=== PATIENT | female | born 1985 | race Caucasian/White ===

== ENCOUNTER 2020-06-14 18:51 | Emergency (ER) | payer MEDICAID, SELFPAY ==
[2020-06-14 19:01] VITALS: BP 125/87; PULSE 89; RESP 18; TEMP 37.1; O2SAT 98; BMI 35.4
--- NOTE | 2020-06-14 19:31 | ED_ITS ---
HPI - Dental/Oral General Chief complaint: Dental/Oral Stated complaint: DENTAL PAIN Source: patient Mode of arrival: ambulatory Limitations: no limitations History of Present Illness HPI Narrative: 34-year-old female presents with dental pain to upper and lower molars on the right side of her mouth. States that the top molar has been broken for about a year and the bottom molar started hurting several days ago. She has been taking Tylenol Motrin with poor effect. She does not have a dentist, states have pain when chewing, but denies fevers, chills, sore throat, chest pain pressure, palpitations, shortness breath, abdominal pain, abdominal distention, dysuria, heat and hematuria. MD Complaint: tooth pain Teeth map: 1. Broken with caries and gingivitis 2. Dental caries with gingivitis Onset (ago): week(s) (1) Duration: constant Severity: moderate Severity scale (1-10): 7 Relieving factors: nothing Exacerbating factors: chewing, cold, heat and drinking fluids Context: history of dental caries and poor dental care Associated symptoms: gum swelling Treatment prior to arrival: oral analgesic Related Data Previous Rx's Medication Instructions Recorded amoxicillin-pot clavulanate 1 tab PO Q12H 10 Days #20 tab 06/14/20 [Augmentin] ibuprofen 600 mg PO Q8H PRN #30 tab 06/14/20 Allergies Allergy/AdvReac Type Severity Reaction Status Date / Time No Known Allergies Allergy Verified 06/14/20 19:01 Review of Systems Review of Systems: Constitutional: No Fever, No Chills ENT/Mouth: No swallowing difficulty, no change in voice, positive dental pain, positive jaw pain, no facial swelling Eyes: No Eye Pain, No Swelling Cardiovascular: No Chest Pain, No SOB Respiratory: No Cough, No Sputum, No Wheezing, No Smoke Exposure, No Dyspnea Gastrointestinal: No Nausea, No Vomiting, No Diarrhea Genitourinary: No Dysuria Musculoskeletal: No Myalgias Skin: No rash Neuro: No Weakness, No Numbness, No Headache Yes all other systems are reviewed and are negative PMFSH Past Medical History Attestation statement: The following information was validated with the patient. Source: old records reviewed Medical History (Updated 06/14/20 @ 20:00 by Kalpana Parmar NP) Anxiety Depression Sleep apnea Vitamin B deficiency Social History Social History Advance Directives: No Advance Directives Information Provided: No Physical Exam Vital Signs: Vital Signs: Last Vital Signs Temp 98.8 F 06/14/20 19:01 Pulse 89 06/14/20 19:01 Resp 18 06/14/20 19:01 BP 125/87 06/14/20 19:01 Pulse Ox 98 06/14/20 19:01 Body Mass Index 35.4 Appearance: Alert. Oriented X3. No acute distress. Afebrile Eyes: Pupils equal, round and reactive to light. ENT: Pharynx normal. Molar 2 broken with visible caries, molar 31 visible caries, gingivitis surrounding both teeth Neck: Normal inspection. Neck supple. No cervical lymphadenopathy CVS: Normal heart rate and rhythm. Pulses normal. Respiratory: No respiratory distress. Breath sounds normal. Abdomen: Soft and nontender. Skin: Skin warm and dry. Normal skin color. Normal skin turgor. Extremities: No lower extremity edema. Neuro: No motor deficit. No sensory deficit. Course Course Course Narrative: 34-year-old female with dental pain. Visible caries and broken tooth noted. Will treat with Augmentin and lidocaine. Patient was advised to use [id number] Orajel or equivalent for topical pain management. Patient appears nontoxic, is able to maintain secretions, swallows without difficulty. She was advised to eat soft foods at mild temperatures. She is given work sheet for dental clinics as she does not have a dental provide r at this time. Patient verbalized understanding of and agrees to plan of care discharge home. MDM - Dental/Oral Differential Diagnosis Differential diagnosis: Likely gingival abscess, dental caries, toothache, dental abscess and fracture of tooth Medical Records Attestation: I reviewed the patient's medical records. Discharge Plan Discharge Clinical Impression: Dental caries, Dental abscess Patient Disposition: Home, Self-Care Instructions: Dental Abscess (ED), Toothache (ED) Additional Instructions: You were evaluated for dental pain. You may consider purchasing Ambesol or Orajel [id number] for topical pain management. Continue to use Tylenol and Motrin as needed for pain every 4-6 hours. We prescribed Augmentin and antibiotic. Please take this for the next 10 days twice a day. You must follow up dentist. Please call the numbers on the dental clinic work sheet to find a provider that will accept you. Thank you for choosing this emergency department for evaluation. Please follow-up with primary care physician as needed. Return to the emergency department for any new, concerning, or worsening symptoms. Prescriptions: New amoxicillin-pot clavulanate [Augmentin] 875-125 mg tablet 1 tab PO Q12H 10 Days Qty: 20 RF: 0 ibuprofen 600 mg tablet 600 mg PO Q8H PRN (Reason: pain) Qty: 30 RF: 0 Interventions: ED Discharge Assessment Last Done: 06/14/20 20:12 Discharge Date/Time: 06/14/20 20:14
[2020-06-14] MEDS: Amoxicillin/Potassium Clav 875 MG TABLET PO (19:50)
== END 2020-06-14 20:14 | disposition home or self-care (01) ==
PROVIDERS: Emergency Provider Emergency Medicine Emergency Medical Services
DX: K02.9 Dental caries, unspecified (principal); K05.319 Chronic periodontitis, localized, unspecified severity; Z79.899 Other long term (current) drug therapy
CPT/HCPCS: 99283; 99284

== ENCOUNTER 2020-07-06 10:23 | Emergency (ER) | payer MEDICAID, SELFPAY ==
--- NOTE | ~2020-07-06 | CT_ITS ---
CT HEAD WITHOUT CONTRAST CLINICAL INFORMATION: Migraine headache worse than prior. COMPARISON: None available. TECHNIQUE: Contiguous axial imaging was performed from the skull base to vertex without intravenous administration of contrast. This CT examination was performed using dose optimization techniques as appropriate, variously including the following: *Automated exposure control *Adjustment of mA and/or kV according to patient size (this includes techniques or standardized protocols for targeted exams where dose is matched to indication/reason for exam; i.e. extremities or head) *Use of iterative reconstruction technique FINDINGS: There is no intracranial hemorrhage, hydrocephalus, extra-axial surface collection, midline shift, or other herniation pattern. Foley to white matter differentiation is diffusely maintained without evidence of an evolved acute territorial infarct. The basilar cisterns are preserved. No significant soft tissue abnormality. No acute osseous abnormality. The paranasal sinuses and the mastoid air cells are well aerated. CT/CT head/brain wo con IMPRESSION: No acute intracranial abnormality.
[2020-07-06 11:13] VITALS: BP 144/78; PULSE 90; RESP 16; TEMP 37.1; O2SAT 98; BMI 55.4
--- NOTE | 2020-07-06 11:23 | ECG_ITS ---
Test Reason : HEADACHE Blood Pressure : / mmHG Vent. Rate : 082 BPM Atrial Rate : 082 BPM P-R Int : 178 ms QRS Dur : 084 ms QT Int : 366 ms P-R-T Axes : 053 053 031 degrees QTc Int : 427 ms Normal sinus rhythm Normal ECG No previous ECGs available Referred By: Lizbeth Barfield Electronically Signed By:Wilfredo Wild
[2020-07-06] MEDS: 0.9 % Sodium Chloride 1,000 ML 999 ML IVCONT (11:59)
[2020-07-06 12:10] LABS: Basophils Absolute Auto 0.1 X10*3/uL (0.0-0.2); Eosinophils Absolute Auto 0.5 X10*3/uL (0.0-0.4); Eosinophils Percent Auto 5.4 % (0-4); Hematocrit 39.1 % (37-47); Hemoglobin 12.5 g/dl (12.0-16.0); Imm Gran Abs Auto 0.04 X10*3/uL (0.00-0.03); Imm Gran Pct Auto 0.4 % (0.0-0.4); Lymphocytes Absolute Auto 2.8 X10*3/uL (1.2-4.9); Lymphocytes Percent Auto 28.4 % (20-40); MANUAL DIFF FLAG NO; Mean Corpuscular Hemoglobin 27.4 pg (27.0-33.0); Mean Corpuscular Volume 85.7 fL (80-98); Monocytes Absolute Auto 0.7 X10*3/uL (0.1-1.2); Monocytes Percent Auto 6.5 % (2-11); Neutrophils Absolute Auto 5.8 X10*3/uL (2.0-8.3); Neutrophils Percent Auto 58.3 % (45-73); Platelet Count 340 X10*3/uL (160-400); Red Blood Count 4.56 X10*6/uL (4.20-5.50); Red Cell Distribution Width 16.5 % (11.0-16.0)
[2020-07-06 12:44] LABS: HCG Quantitative < 2 mIU/mL
[2020-07-06 12:45] LABS: Anion Gap 14 (12-20); Blood Urea Nitrogen 13 mg/dL (9-16); Carbon Dioxide 22 mmol/L (22-29); Chloride 106 mmol/L (96-108); Creatinine Clr Calc Pharmacy 150.3; Estimated Glomerular Filt Rate > 60; Glucose Random 95 mg/dL (60-115); Potassium 4.4 mmol/L (3.3-5.1); Sodium 138 mmol/L (135-145)
[2020-07-06 12:48] LABS: Troponin-I High Sensitivity < 3.5 ng/L (<3.5-17.0)
--- NOTE | 2020-07-06 13:07 | ED.HA ---
HPI - Headache General Chief Complaint: Headache Stated Complaint: MIGRAINE Time Seen by Provider: 07/06/20 11:23 Source: patient Mode of arrival: ambulatory Limitations: no limitations History of Present Illness HPI Narrative: 34-year-old female with a past medical history of hemiplegic migraine headaches, anxiety, depression, sleep apnea and vitamin-B deficiency who recently moved from [place] here who has had MRIs in the past of her brain in [place] and they explained to her that the MRIs were normal and these were hemiplegic migraine headaches presenting for a migraine headache at the frontal aspect of her head with associated left arm numbness and as patient reports weakness. Reports that this started when she was playing a video gain and she had visual disturbance. Which is similar when compared to her prior migraine hemiplegic headaches. Reports she took an Excedrin and this improved her headache and it is completely resolved at this time. Although reports that she has followed up with her primary care provider and they explained to her that they cannot give her any medications or do any MRIs without any other paper trails of her having recent headaches therefore that is why she came to the emergency department today to have an MRI and blood work just to prove that she does get migraine headaches with hemiplegia. I explained to the patient that we will not be obtaining a MRI unless we think this is a stroke emergently although I can do a CT scan of her brain. Patient denies any other symptoms complaints or concerns at this time. MD elicited complaint: headache and migraine Onset (ago): hour(s) (Few hours prior to arrival) Onset description: gradually Location: frontal Severity: similar to previous episodes Quality & Timing: aching Exacerbating factors: none Relieving factors: other (Excedrin) Context: other (While playing video game) Associated symptoms: tingling (To left arm) and numbness (To left arm) Treatments prior to arrival: other (Excedrin which completely resolved her headache) Related Data Previous Rx's Medication Instructions Recorded amoxicillin-pot clavulanate 1 tab PO Q12H 10 Days #20 tab 06/14/20 [Augmentin] ibuprofen 600 mg PO Q8H PRN #30 tab 06/14/20 lfcpvyobyj-yomkmwyolmcvp-qmgk 1 cap PO Q8H PRN #10 cap 07/06/20 [Fioricet] Allergies Allergy/AdvReac Type Severity Reaction Status Date / Time No Known Allergies Allergy Verified 06/14/20 19:01 Review of Systems Review of Systems: Constitutional : No changes in activity, No lethargy, No recent prior head injury, No agitation, No increased fussiness ENT/Mouth : No Ear Pain, No Nasal discharge/drainage Eyes: No Eye Pain, No Swelling, No Redness, No Foreign Body, No Vision Changes Cardiovascular : No Chest Pain, No SOB Respiratory : No Cough Gastrointestinal : No Nausea, No Vomiting, No abdominal Pain Genitourinary : No Dysuria, No Urinary Frequency, No Urinary Incontinence, No Urgency, No Flank Pain Musculoskeletal : No joint pain, No neck stiffness, No back pain/injury Skin : No lacerations Neuro : + Weakness, + Headache, + paresthesias to left arm, No unsteady gait, No Loss of Consciousness, No altered mental status, No dizziness Denies past medical history of HIV, recent trauma, coagulopathy, recent spinal/ epidural procedure, new medication, URI symptoms, close contacts with similar symptoms, tick bite, or known CO2 exposure. Yes all other systems are reviewed and are negative PMFSH Past Medical History Attestation statement: The following information was validated with the patient. Medical History Anxiety Depression Sleep apnea Vitamin B deficiency Social History Social History Alcohol intake: never Smoking Status: Current every day smoker Use of substances other than those prescribed or required for medical reasons: Yes Substance Use Type: Marijuana Advance Directives: No Advance Directives Information Provided: No Physical Exam Vital Signs: Vital Signs: Last Vital Signs Temp 98.7 F 07/06/20 11:13 Pulse 90 07/06/20 11:13 Resp 16 07/06/20 11:13 BP 144/78 H 07/06/20 11:13 Pulse Ox 98 07/06/20 11:13 Body Mass Index 55.4 Vital signs have been reviewed as normal and appeared to be correct. Blood pressure normal. Heart rate normal. Respiration rate normal. Temperature normal. Oxygen saturation normal. Appearance: Alert. Oriented X3. No acute distress. Head: Normal external exam. Normocephalic. Atraumatic. Able to rotate head bilaterally. Eyes: PERRLA. EOMI. No nystagmus noted. Conjunctiva and sclera normal. Eyelids normal. Corneal reflex normal. ENT: EAC normal. TM's Normal. Hearing normal. Pharynx normal. Uvula midline. tongue midline. Moist mucous membranes. No trismus noted. No drooling noted. No muffled voice noted. Neck: Normal inspection. Neck supple. FROM. No adenopathy. Thyroid Normal. No meningeal signs. No neck mass noted. CVS: Normal heart rate and rhythm. Heart sound normal. No murmurs noted. Pulses normal throughout. Respiratory: No respiratory distress. Painless inspiration. Breath sounds normal. No wheezes/rales/rhonchi noted. Chest nontender. No accessory muscle usage noted or decreased air movement noted. Back: Full range of motion noted. Skin: Skin warm and dry. Normal skin color. Normal skin turgor. No rashes/lesions/lacerations noted. Extremities: Extremities exhibit normal range of motion. Extremities nontender. Able to shrug shoulders bilaterally and keep up against resistance. Neuro: Oriented X 3. No motor deficit. No sensory deficit. Reflexes normal. Moving all extremities. No focal motor deficits. Cranial nerves II-XI intact bilaterally. Facial strength normal. Normal cognition. Speech normal. Gait normal. Strength 5/5 throughout. No pronator drift. No tremor noted. No fasciculations noted. Muscle tone normal throughout. No asterixis noted. Zszdzf-om-tbqd test normal. Heel to rivera test normal. Tandem gait normal. Does not sway with eyes open. Romberg test negative. Rapid alternating movement upper extremity normal. Rapid alternating movement lower extremity normal. Hand drop from overhead-Mrs. face. No rigidity noted. NIHSS score 0. Course Course Course Narrative: - Patient afebrile, resting comfortably in no distress. Non-toxic appearing. Patient denies any recent trauma/injury to head. Neurological exam shows no deficits. BP WNL. Denies any changes in vision. Patient ambulates without difficulty. Given the history, and physical - most likely diagnosis: Hemiplegic Migraine FONSECA. Although due to patient reporting that she wants an MRI for a papaer trail will obtain CT scan of brain to evaluate for any acute processes. Patient reports her headache is gone at this time due to the Excedrin she took and is refusing any medications at this time. Will d/c with migraine medicaiton and advised to follow - up with PCP. Patient demonstrated good understanding of signs and symptoms to return to ED for further testing should sx worsen. gradual onset FONSECA. Pt states classic of previous migraine hemiplegic HAs. SAH: unlikely given gradual onset and similar to previous episodes Intracranial bleed: unlikely given neg trauma, neg anticoagulation Meningitis: unlikely given pt afebrile, neg stiff neck, no immune compromise. Exam without signs of meningismus Temporal arteritis: Unlikely given Neg jaw claudication, no temporal tenderness or nodularity on exam. Cerebral venous thrombosis: unlikely given no h/o hypercoaguable state, no chronic head/neck infection. Reevaluation(s) Reevaluation #1: - labs obtained and all within normal limits. CT scan of brain within normal limits no acute processes noted. Will DC home with symptomatic treatment along with instructions to return if any new or worsening symptoms to follow up with primary care provider. Patient understands agrees the plan. Time: 13:48 [facility] - Headache Medical Records Attestation: I reviewed the patient's medical records. Lab Data Attestation: I reviewed the patient's lab results. Result diagrams: 07/06/20 11:56 07/06/20 11:56 Labs: Lab Results 07/06/20 07/06/20 07/06/20 Range/Units 11:56 11:56 11:56 WBC 10.0 (4.8-10.8) X10*3/uL RBC 4.56 (4.20-5.50) X10*6/uL Hgb 12.5 (12.0-16.0) g/dl Hct 39.1 (37-47) % MCV 85.7 (80-98) fL MCH 27.4 (27.0-33.0) pg MCHC 32.0 (31.0-35.0) g/dl RDW 16.5 H (11.0-16.0) % Plt Count 340 (160-400) X10*3/uL MPV 10.0 (9.4-12.3) fL Immature Gran % (Auto) 0.4 (0.0-0.4) % Neut % (Auto) 58.3 (45-73) % Lymph % (Auto) 28.4 (20-40) % Glasscock % (Auto) 6.5 (2-11) % Eos % (Auto) 5.4 H (0-4) % Baso % (Auto) 1.0 (0-2) % Lymph # (Auto) 2.8 (1.2-4.9) X10*3/uL Glasscock # (Auto) 0.7 (0.1-1.2) X10*3/uL Eos # (Auto) 0.5 H (0.0-0.4) X10*3/uL Baso # (Auto) 0.1 (0.0-0.2) X10*3/uL Abs Immat Gran (auto) 0.04 H (0.00-0.03) X10*3/uL Absolute Neuts (auto) 5.8 (2.0-8.3) X10*3/uL Absolute Nucleated RBC 0.000 (0.0-0.012) X10*3/uL Nucleated RBC % (auto) 0.0 (0.0-0.2) /100WBC Sodium 138 (135-145) mmol/L Potassium 4.4 (3.3-5.1) mmol/L Chloride 106 (96-108) mmol/L Carbon Dioxide 22 (22-29) mmol/L Anion Gap 14 (12-20) BUN 13 (9-16) mg/dL Creatinine 0.83 (0.5-1.4) mg/dL Estim Creat Clear Calc 150.3 Estimated GFR > 60 Random Glucose 95 (60-115) mg/dL Calcium 9.0 (8.4-10.2) mg/dL Magnesium 2.0 (1.6-2.6) mg/dL Troponin I High Sens < 3.5 (<3.5-17.0) ng/L C-Reactive Protein 0.30 (< or = 0.50) mg/dL Beta HCG, Quant < 2 mIU/mL Imaging Data CT scan of brain without contrast: Attestation: I personally reviewed and interpreted this imaging study as follows: Radiologist's impression: FINDINGS: There is no intracranial hemorrhage, hydrocephalus, extra-axial surface collection, midline shift, or other herniation pattern. Foley to white matter differentiation is diffusely maintained without evidence of an evolved acute territorial infarct. The basilar cisterns are preserved. No significant soft tissue abnormality. No acute osseous abnormality. The paranasal sinuses and the mastoid air cells are well aerated. CT/CT head/brain wo con IMPRESSION: No acute intracranial abnormality. ECG Data Attestation: I personally reviewed and interpreted this ECG as follows: ECG interpretation date: 07/06/20 ECG interpretation time: 11:15 Interpretation: Normal sinus rhythm with ventricular rate of 82 with normal MI interval normal QRS duration normal QT/QTC interval. No acute ischemic changes noted. Discharge Plan Discharge Clinical Impression: Headache, migraine Patient Disposition: Home, Self-Care Instructions: Migraine Headache (ED) Prescriptions: New aucwvwytuv-gtdqxpuapktxt-bxti [Fioricet] 50-300-40 mg capsule 1 cap PO Q8H PRN (Reason: pain) Qty: 10 RF: 0 No Action amoxicillin-pot clavulanate [Augmentin] 875-125 mg tablet 1 tab PO Q12H 10 Days Qty: 20 RF: 0 ibuprofen 600 mg tablet 600 mg PO Q8H PRN (Reason: pain) Qty: 30 RF: 0 Referrals: Navarro Dumont MD [Primary Care Provider] - 2 days Osvaldo Segura MD [Physician] - 2 weeks (Call to make a follow-up appointment for your migraine hemiplegic headaches) Stand Alone Forms: Work/School Release Print Language: Botswanan
[2020-07-06] MEDS: Butalb/Acetamin/Caff 50/325/40 TABLET 2 TAB PO (14:26)
== END 2020-07-06 14:53 | disposition home or self-care (01) ==
PROVIDERS: Physician Assistant Medical; Emergency Provider Emergency Medicine Emergency Medical Services; PCP Internal Medicine
DX: G43.909 Migraine, unspecified, not intractable, without status migrainosus (principal); F17.200 Nicotine dependence, unspecified, uncomplicated; Z71.6 Tobacco abuse counseling; Z79.899 Other long term (current) drug therapy
CPT/HCPCS: 36415; 70450; 80048; 83735; 84484; 84702; 85025; 86140; 93005; 96360; 99283; 99284

== ENCOUNTER 2020-08-18 14:55 | Outpatient (REF) | payer MEDICAID, SELFPAY ==
--- NOTE | ~2020-08-18 | US_ITS ---
EXAMINATION: US PELVIS COMPLETE CLINICAL INFORMATION: Leiomyoma. COMPARISON: None TECHNIQUE: Transabdominal and transvaginal imaging of pelvis is performed. FINDINGS: The uterus is anteverted measuring 12.9 cm in length, 8.1 cm in AP or 7.3 cm in transverse dimension. There is a large hypoechoic lesion in the right body of uterus measuring 7.0 x 6.9 x 6.5 cm consistent with fibroid. No additional lesions seen. The endometrial canal is distorted by the large fibroid. It measures 0.8 cm. The right ovary measures 3.4 x 2.5 x 3.2 cm and volume 16.0 mL. It appears unremarkable. The left ovary measures 2.8 x 3.9 x 3.2 cm and volume 18.7 mL. There is an anechoic cyst measuring 2.2 x 2.3 x 2.2 cm. There is no free fluid seen. US/US pelvic complete IMPRESSION: Large uterine fibroid. Distorted endometrial lining with endometrial thickness measuring 0.8 cm. Anechoic cyst left ovary.
--- NOTE | ~2020-08-18 | US_ITS ---
EXAMINATION: US PELVIS COMPLETE CLINICAL INFORMATION: Leiomyoma. COMPARISON: None TECHNIQUE: Transabdominal and transvaginal imaging of pelvis is performed. FINDINGS: The uterus is anteverted measuring 12.9 cm in length, 8.1 cm in AP or 7.3 cm in transverse dimension. There is a large hypoechoic lesion in the right body of uterus measuring 7.0 x 6.9 x 6.5 cm consistent with fibroid. No additional lesions seen. The endometrial canal is distorted by the large fibroid. It measures 0.8 cm. The right ovary measures 3.4 x 2.5 x 3.2 cm and volume 16.0 mL. It appears unremarkable. The left ovary measures 2.8 x 3.9 x 3.2 cm and volume 18.7 mL. There is an anechoic cyst measuring 2.2 x 2.3 x 2.2 cm. There is no free fluid seen. US/US transvaginal IMPRESSION: Large uterine fibroid. Distorted endometrial lining with endometrial thickness measuring 0.8 cm. Anechoic cyst left ovary.
== END 2020-08-18 14:56 | disposition home or self-care (01) ==
LOC: HO.US 14:55
PROVIDERS: Visit Provider Advanced Practice Midwife
DX: D25.9 Leiomyoma of uterus, unspecified (principal)
CPT/HCPCS: 76830; 76856

== ENCOUNTER → 2020-09-22 08:11 | Outpatient (BNVA) | payer MEDICAID, SELFPAY | PROVIDERS: PCP Internal Medicine; Visit Provider Obstetrics & Gynecology | DX: D21.9 Benign neoplasm of connective and other soft tissue, unspecified (principal) | CPT/HCPCS: 99202 ==

== ENCOUNTER 2021-03-23 11:05 | Outpatient (REF) | payer MEDICAID, SELFPAY ==
--- NOTE | ~2021-03-23 | US_ITS ---
EXAMINATION: ULTRASOUND OF THE PELVIS CLINICAL INFORMATION: Benign neoplasm of connective tissue.. COMPARISON: 08/18/2020. TECHNIQUE: Transabdominal and transvaginal pelvic ultrasound. A transvaginal study was performed in addition to the transabdominal study which did not yield an adequate examination of the uterus and ovaries due to superimposed distended gas-filled loops of bowel. FINDINGS: The uterus is normal in size and appearance, measuring 11.7 x 7.9 x 7.3 cm longitudinally, anteroposteriorly and transversely. The endometrial stripe thickness is normal, measuring 0.8 cm in thickness. Redemonstration of a prominent uterine fibroid extending off of the anterior right uterine body. This measures 7.3 x 6.4 x 6.7 cm. This is similar to prior. Nabothian cysts are noted at the cervix. The ovaries bilaterally are visualized and appear normal, with the right ovary measuring 3.3 x 2.3 x 3.5 cm and the left ovary measuring 5.1 x 3.6 x 3.3 cm. Dominant left ovarian follicle measures 2.9 cm. No follow-up imaging recommended. No pelvic free fluid. US/US pelvic complete IMPRESSION: Dominant uterine fibroid without significant change from prior..
--- NOTE | ~2021-03-23 | US_ITS ---
EXAMINATION: ULTRASOUND OF THE PELVIS CLINICAL INFORMATION: Benign neoplasm of connective tissue.. COMPARISON: 08/18/2020. TECHNIQUE: Transabdominal and transvaginal pelvic ultrasound. A transvaginal study was performed in addition to the transabdominal study which did not yield an adequate examination of the uterus and ovaries due to superimposed distended gas-filled loops of bowel. FINDINGS: The uterus is normal in size and appearance, measuring 11.7 x 7.9 x 7.3 cm longitudinally, anteroposteriorly and transversely. The endometrial stripe thickness is normal, measuring 0.8 cm in thickness. Redemonstration of a prominent uterine fibroid extending off of the anterior right uterine body. This measures 7.3 x 6.4 x 6.7 cm. This is similar to prior. Nabothian cysts are noted at the cervix. The ovaries bilaterally are visualized and appear normal, with the right ovary measuring 3.3 x 2.3 x 3.5 cm and the left ovary measuring 5.1 x 3.6 x 3.3 cm. Dominant left ovarian follicle measures 2.9 cm. No follow-up imaging recommended. No pelvic free fluid. US/US transvaginal IMPRESSION: Dominant uterine fibroid without significant change from prior..
== END 2021-03-23 11:06 | disposition home or self-care (01) ==
LOC: HO.US 11:05
PROVIDERS: PCP Internal Medicine; Visit Provider Obstetrics & Gynecology
DX: D21.9 Benign neoplasm of connective and other soft tissue, unspecified (principal)
CPT/HCPCS: 76830; 76856

== ENCOUNTER → 2021-03-30 11:10 | Outpatient (BNVA) | payer MEDICAID, SELFPAY | PROVIDERS: Visit Provider Obstetrics & Gynecology ==

== ENCOUNTER 2021-10-13 07:46 | Emergency (ER) | payer MEDICAID, SELFPAY ==
[2021-10-13 08:02] VITALS: BP 142/70; PULSE 82; RESP 18; TEMP 36.6; O2SAT 99; BMI 42.3
[2021-10-13 09:22] LABS: UPreg QC Valid YES; Urine Pregnancy NEGATIVE (NEGATIVE)
--- NOTE | 2021-10-13 09:25 | ED_ITS ---
HPI - Nausea/Vomiting/Diarrhea General Chief complaint: Nausea/Vomiting/Diarrhea Stated complaint: Vomiting x3 days Time Seen by Provider: 10/13/21 09:01 Source: patient Mode of arrival: ambulatory Limitations: no limitations History of Present Illness HPI Narrative: 35-year-old female who presents emergency department for evaluation of nausea and vomiting. She states that she has had persistent nausea over the past 3 days. She states she has been vomiting once a day. She vomited this morning she states that he can take the food that she ate last night. She states she occasionally gets heartburn like symptoms. Her last menstrual period was last month and she believes that it was a normal menstrual period for her. She denied fever, chills, rhinorrhea but she states she does have nasal congestion and she feels like she has a cold. She states that she has a cough which is productive yellow to greenish sputum and occasional she states that she has noticed blood streaks in the sputum. She denied chest pain shortness of breath or dyspnea on exertion. She had 1 episode of diarrhea this morning. She denied abdominal pain, frequency, urgency or dysuria. She has not noticed any bloody or dark stools. The patient states that she had to be sent home from work yesterday secondary to her vomiting and she was unable to work today. Related Data Home Medications Medication Instructions Recorded Confirmed amitriptyline 25 mg tablet 25 mg PO DAILY 09/22/20 cyclobenzaprine 10 mg tablet 10 mg PO TID 09/22/20 propranolol 20 mg tablet 10 mg PO BID 09/22/20 sumatriptan succinate 100 mg tablet 100 mg PO Q2-4H PRN 09/22/20 Previous Rx's Medication Instructions Recorded amoxicillin 875 mg-potassium 1 tab PO Q12H 10 Days #20 tab 06/14/20 clavulanate 125 mg tablet (Augmentin) ibuprofen 600 mg tablet 600 mg PO Q8H PRN #30 tab 06/14/20 afnmgsrksm-upckefuzlbtrv-jysgpfki 1 cap PO Q8H PRN #10 cap 07/06/20 50 mg-300 mg-40 mg capsule (Fioricet) omeprazole 20 mg capsule,delayed 20 mg PO DAILY 30 Days #30 cap 10/13/21 release ondansetron 4 mg disintegrating 4 mg PO Q6-8H PRN #14 tab 10/13/21 tablet Allergies Allergy/AdvReac Type Severity Reaction Status Date / Time No Known Allergies Allergy Verified 10/13/21 08:02 Review of Systems Review of Systems: Yes all other systems are reviewed and are negative [facility] Past Medical History [facility] Narrative: Social history: She states she has 2 jobs working in [employer]. She vapes nicotine and she states that she used to vape THC but she has stopped. She rarely drinks alcohol. She denies any other drug use. Medical History Anxiety Carpal tunnel syndrome Depression Hemiplegic migraine Sleep apnea Vitamin B deficiency Surgical History Hx of dilation and curettage Social History Social History Alcohol intake: never Substance Use Type: Marijuana Advance Directives: No Advance Directives Information Provided: No Physical Exam Vital Signs: Vital Signs: Last Vital Signs Temp 97.9 F 10/13/21 08:02 Pulse 82 10/13/21 08:02 Resp 18 10/13/21 08:02 BP 142/70 H 10/13/21 08:02 Pulse Ox 99 10/13/21 08:02 BMI result Body Mass Index 42.3 Const: General: cooperative and no acute distress Orientation/consciousness: oriented to person and oriented to place Limitations: no limitations HEENT: Head: Yes normal to inspection, Yes normocephalic and Yes atraumatic Ears: external ears normal General nose exam: Normal external nose present Face and sinus: Yes normal facial exam Mouth: Normal oral and palatal mucosa present Throat: Yes posterior oropharynx normal Eyes: General: appearance normal, both eyes and all related structures Pupils: Equal, round and reactive pupils present Neck: Neck: Yes normal visual inspection, Yes no lymphadenopathy, Yes trachea midline and Yes supple Chest: Chest palpation & inspection: normal inspection of the chest and normal palpation of entire chest wall Resp: Effort & Inspection: normal respiratory effort and able to speak in complete sentences Auscultation: clear to auscultation bilaterally Cardio: Rate: regular rate Rhythm: regular rhythm Heart sounds: S1 normal heart sound present, S2 normal heart sound present and no murmurs GI: Inspection: Yes normal to inspection Palpation (GI): Soft to palpation, nontender and no guarding Auscultation: normal bowel sounds : General: Yes no CVA tenderness Back/Spine/Pelvis: Back: no CVA tenderness Skin: General skin exam: no rashes or lesions noted Neuro: General: oriented to person and oriented to place Cranial nerves: Yes CN's II-XII intact bilaterally and Yes Equal, round and reactive pupils present Cognition (Neuro): normal cognition Motor exam (neuro): 5/5 motor strength present throughout Extrem: General: Yes normal to inspection Psych: Appearance: grossly normal Speech and movement: Normal speech and movement present Affect: normal affect Attitude: cooperative Thought process: Normal thought process present Thought content: Normal thought content present Course Course Course Narrative: 35-year-old female who presents emergency department for evaluation of rhinorrhea, nasal congestion, cough, vomiting x3 days, 1 episode per day. She also had 1 episode of diarrhea this morning. The patient's vital signs were normal and her examination was unremarkable. Patient's urine test was negative. Patient's symptoms are most likely secondary to a viral syndrome or gastritis. Patient states she does get heartburn like symptoms therefore she will be treated with omeprazole and Zofran ODT. She will also be given a work note. She was given printed and verbal instructions discharged home. MDM - Nausea/Vomiting/Diarrhea Lab Data Labs: Lab Results 10/13/21 Range/Units 09:09 Urine Test NEGATIVE (NEGATIVE) Discharge Plan Discharge Clinical Impression: URI (upper respiratory infection) Qualifiers: URI type: unspecified viral URI Qualified Code(s): J06.9 - Acute upper respiratory infection, unspecified Gastritis Qualifiers: Gastritis type: unspecified gastritis Chronicity: acute Gastritis bleeding: without bleeding Qualified Code(s): K29.00 - Acute gastritis without bleeding Vomiting Qualifiers: Nausea presence: with nausea Patient Disposition: Home, Self-Care Instructions: Gastritis (ED), Upper Respiratory Infection (ED) Additional Instructions: Your urine test was negative. If you do not have a normal or if you are 2-3 weeks late and then you should repeat a test, home test are very sensitive if your several weeks late. Take Zofran ODT 4 mg pills, 1 pill dissolved in your mouth every 8 hours as needed for nausea and vomiting. Take omeprazole 20 mg pills, 1 pill once a day, this is a medication that will shut off your acid production and help her stomach heal. Follow-up with your doctor in 2 days. Please return to the emergency department if your symptoms get worse or if you develop any symptoms that are concerning to you. Prescriptions: New omeprazole 20 mg capsule,delayed release(DR/EC) 20 mg PO DAILY 30 Days Qty: 30 0RF ondansetron 4 mg tablet,disintegrating 4 mg PO Q6-8H PRN (Reason: nausea and vomiting) Qty: 14 0RF No Action amoxicillin-pot clavulanate [Augmentin] 875-125 mg tablet 1 tab PO Q12H 10 Days Qty: 20 0RF ibuprofen 600 mg tablet 600 mg PO Q8H PRN (Reason: pain) Qty: 30 0RF cjkilfclwr-rlowmfixsodku-cotb [Fioricet] 50-300-40 mg capsule 1 cap PO Q8H PRN (Reason: pain) Qty: 10 0RF sumatriptan succinate 100 mg tablet 100 mg PO Q2-4H PRN0RF Rx Instructions: do not exceed 2 doses per 24 hrs propranolol 20 mg tablet 10 mg PO BID 0RF amitriptyline 25 mg tablet 25 mg PO DAILY 0RF cyclobenzaprine 10 mg tablet 10 mg PO TID 0RF
[2021-10-13 09:27] LABS: Appearance Urine CLOUDY; Color Urine YELLOW; Glucose Urine UA NEG (NEG); Leukocyte Esterase Urine NEG (NEG); Nitrite Urine NEG (NEG); PH 5.5 (5.0-8.0); Specific Gravity - Urine >= 1.030 (1.005-1.025); UACC Culture Trigger NO; Urine Blood NEG (NEG); Urine Ketones NEG (NEG); Urine Protein 1+ MG/DL (NEG-TRACE)
[2021-10-13 09:37] LABS: Bacteria Urine TRACE /LPF; Calcium Oxalate Crystals Urine 4+ /LPF; RBC Urine 0 /HPF (0); Squamous Epithelial Cell Urine 4+ /LPF; WBC Urine 0-2 /HPF (0-4)
== END 2021-10-13 09:47 | disposition home or self-care (01) ==
PROVIDERS: Emergency Provider Emergency Medicine Emergency Medical Services; PCP Internal Medicine
DX: J06.9 Acute upper respiratory infection, unspecified (principal); K29.00 Acute gastritis without bleeding; Z79.899 Other long term (current) drug therapy
CPT/HCPCS: 81001; 81025; 99283

== ENCOUNTER 2024-05-17 17:51 | Emergency (ER) | payer MEDICAID, SELFPAY ==
[2024-05-17 18:16] VITALS: BP 137/80; PULSE 91; RESP 18; TEMP 36.3; O2SAT 100; BMI 44.0
--- NOTE | 2024-05-17 18:24 | ED_ITS ---
HPI - General Adult General Chief complaint: Wound/Laceration Stated complaint: Rt Thumb Laceration Time Seen by Provider: 05/18/24 00:52 Source: patient Limitations: no limitations History of Present Illness ED Provider: Vanessa Lai PA-C HPI narrative: 38-year-old female presents with right thumb laceration. Patient works in a kitchen, she was slicing an onion, she sliced the tip of the thumb. It is not b leeding. She is does not know if her tetanus is up-to-date. Related Data Home Medications ?Medication ?Instructions ?Recorded ?Confirmed amitriptyline 25 mg tablet 25 mg PO DAILY 09/22/20 cyclobenzaprine 10 mg tablet 10 mg PO TID 09/22/20 propranolol 20 mg tablet 10 mg PO BID 09/22/20 sumatriptan succinate 100 mg tablet 100 mg PO Q2-4H PRN 09/22/20 Previous Rx's ?Medication ?Instructions ?Recorded amoxicillin 875 mg-potassium 1 tab PO Q12H 10 days #20 tabs 06/14/20 clavulanate 125 mg tablet (Augmentin) ibuprofen 600 mg tablet 600 mg PO Q8H PRN pain #30 tabs 06/14/20 nlclkhdscg-khwpwpcnmeskp-fyyagjew 1 cap PO Q8H PRN pain #10 caps 07/06/20 50 mg-300 mg-40 mg capsule (Fioricet) omeprazole 20 mg capsule,delayed 20 mg PO DAILY 30 days #30 caps 10/13/21 release ondansetron 4 mg disintegrating 4 mg PO Q6-8H PRN nausea and 10/13/21 tablet vomiting #14 tabs Allergies Allergy/AdvReac Type Severity Reaction Status Date / Time No Known Allergies Allergy Verified 05/17/24 18:19 Review of Systems Review of Systems: Yes all other systems are reviewed and are negative Constitutional: Constitutional: Denies fatigue and Denies fever(s) Musculoskeletal: Musculoskeletal: Denies arthralgias, Denies joint swelling, Denies numbness and Denies tingling Neurologic: Denies numbness and Denies tingling Endocrine: Endocrine: Denies fatigue PMF Past Medical History Attestation statement: The following information was validated with the patient. Medical History Anxiety Carpal tunnel syndrome Depression Hemiplegic migraine Sleep apnea Vitamin B deficiency Surgical History Hx of dilation and curettage Social History Social History Alcohol intake: never Smoked in Last 30 Days: Yes Use of substances other than those prescribed or required for medical reasons: Yes Substance Use Type: Marijuana Advance Directives: No Patient : No Physical Exam ED Vital Signs: Vital Signs - 24 hr 05/17/24 18:16 05/18/24 00:01 Temperature 97.3 F 98.2 F Pulse Rate 91 90 Respiratory Rate 18 20 Blood Pressure 137/80 125/63 Pulse Oximetry 100 100 Oxygen Delivery Method Room Air Room Air BMI result Body Mass Index 44.0 Const Other: Alert Orientation/consciousness: patient oriented x3 Resp Effort & Inspection: normal respiratory effort Cardio Other: Normal peripheral perfusion Skin Other: Warm dry no rash, avulsion noted at the tip of the right thumb, it is discolored, still intact and not bleeding Neuro General: patient oriented x3, no focal motor deficits and CN's II-XI intact bilaterally Psych Other: Calm cooperative Course Course Course Narrative: RME, this is a rapid medical exam performed by Naseem Hinkle please refer to primary provider for complete H&P- 38-year-old female presents for evaluation of right thumb laceration. She accidentally cut her thumb with a knife while cutting onions. Appears to be an avulsion injury Medications Administered Discontinued Medications Generic Name Dose Route Start Last Admin Trade Name Freq PRN Reason Stop Dose Admin Diphtheria/Tetanus/Acell Pertussis 0.5 ml 05/18/24 01:34 05/18/24 01:42 Diphth,Pertus(Acell),Tet Adult 0.5 Ml Syringe IM 05/18/24 01:35 0.5 ml .ONCE ONE Administration Medical Decision Making Medical Decision Making MDM Narrative: 38-year-old female presents with right thumb laceration. Patient works in a kitchen, she was slicing an onion, she sliced the tip of the thumb. It is not bleeding. She is does not know if her tetanus is up-to-date. No relevant chronic issues History: Per patient I have considered the following differential diagnoses: Laceration, avulsion, excoriation, abrasion Plan: The patient has an avulsion the flap is still intact, I suspect the tissue we will slough and off given the discoloration. The area is callused as well. I cleaned the site well and covered it with surgical glue, we will up date her tetanus vaccine. Discharge Plan Discharge Clinical Impression: Avulsion of skin of right thumb Patient Disposition: Home, Self-Care Instructions: Acute Wounds (ED) Additional Instructions: You have what is called an avulsion, the flap that is still adhered to the thumb may slough and fall off. Keep the wound clean and dry, it was covered with surgical glue. The glue will gradually wear away. Watch for signs of infection which would include redness, swelling or pus draining from the site. Your tetanus vaccine was updated today it is valid for 10 years. Follow up with your primary care provider as needed. Prescriptions: No Action amoxicillin-pot clavulanate [Augmentin] 875-125 mg tablet 1 tab PO Q12H 10 Days Qty: 20 0RF ibuprofen 600 mg tablet 600 mg PO Q8H PRN (Reason: pain) Qty: 30 0RF epokavtzcg-omruwfgzohozs-bvwl [Fioricet] 50-300-40 mg capsule 1 cap PO Q8H PRN (Reason: pain) Qty: 10 0RF omeprazole 20 mg capsule,delayed release(DR/EC) 20 mg PO DAILY 30 Days Qty: 30 0RF ondansetron 4 mg tablet,disintegrating 4 mg PO Q6-8H PRN (Reason: nausea and vomiting) Qty: 14 0RF sumatriptan succinate 100 mg tablet 100 mg PO Q2-4H PRN Rx Instructions: do not exceed 2 doses per 24 hrs propranolol 20 mg tablet 10 mg PO BID amitriptyline 25 mg tablet 25 mg PO DAILY cyclobenzaprine 10 mg tablet 10 mg PO TID Print Language: [place]
[2024-05-18 00:01] VITALS: BP 125/63; PULSE 90; RESP 20; TEMP 36.8; O2SAT 100
[2024-05-18] MEDS: Diphth,Pertus(ACell),Tet Adult 0.5 ML SYRINGE IM (01:42)
[2024-05-18 02:38] VITALS: BP 125/63; PULSE 90; RESP 20; TEMP 36.8; O2SAT 100
== END 2024-05-18 02:39 | disposition home or self-care (01) ==
PROVIDERS: Emergency Provider Emergency Medicine
DX: S61.011A Laceration without foreign body of right thumb without damage to nail, initial encounter (principal); W26.0XXA Contact with knife, initial encounter; Y93.G1 Activity, food preparation and clean up; Y92.9 Unspecified place or not applicable; Y99.0 Civilian activity done for income or pay; Z23 Encounter for immunization
CPT/HCPCS: 90471; 90715; 99284

== ENCOUNTER 2024-11-28 15:22 | Outpatient (REF) | payer MEDICAID, SELFPAY ==
--- NOTE | ~2024-11-28 | US_ITS ---
EXAMINATION: US PELVIS TRANSABDOMINAL AND TRANSVAGINAL HISTORY: uterine leiomyoma COMPARISON: Comparison is made with the prior examination dated 03/23/2021. TECHNIQUE: Transabdominal and endovaginal real-time 2D phipps-scale ultrasound was performed. FINDINGS: Uterus: The uterus is normal in size, measuring 11.5 x 8.0 x 8.0 cm. Myometrium has a normal echotexture. Again seen is a right posterior fibroid measuring 6.2 x 5.5 x 6.1 cm (previously 7.3 x 6.4 x 6.7 cm). Endometrium: The endometrial stripe measures 8 mm in thickness. Right ovary: The right ovary measures 6.0 x 3.0 x 3.5 cm. The right ovary is normal in size and echotexture. Left ovary: The left ovary measures 4.7 x 2.2 x 2.9 cm. The left ovary is normal in size and echotexture. Pelvic fluid: none. US/US pelvic and transvaginal IMPRESSION: Slight interval decrease in size of the previously seen posterior uterine fibroid. Electronically signed by: Nahum Levi MD 11/29/2024 07:13 AM EDT
--- OUTSIDE RECORDS SUMMARY | 2024-11-28 15:32 | XMS_ITS | Clinical Summary ---
Author Organization [facility] Address [address] [place] [address] Care Team Providers Care Cone Winder Name Role Phone Ayesha Stephen Primary Care Provider [phone] Source Comments PLEASE NOTE, if this patient is a minor, it may be UNLAWFUL to discuss sensitive information that is contained in these records (such as FAMILY PLANNING, MENTAL HEALTH or SUBSTANCE ABUSE) with the minor patient's parent or other person without the patient's specific authorization.[facility] Allergies No known active allergies Medications No known medications Active Problems Problem Noted Date Diagnosed Date Uterine cyst 10/10/2024 PTSD (post-traumatic stress disorder) 10/09/2024 Anxiety and depression 10/09/2024 Attention deficit hyperactivity disorder (ADHD) 10/09/2024 Sleep apnea 01/21/2024 Encounters Date Type Department Care Team Description 11/03/2024 Results Follow-Up [address] [phone] Ayesha Stephen PA 10/17/2024 1:00 PM EDT Office Visit [address] [phone] Nahum Pretty MD 10/16/2024 Travel 10/09/2024 1:00 PM EDT Office Visit [address] [phone] Ayesha Stephen PA from Last 3 Months Family History Medical History Relation Name Comments Graves' disease Father Relation Name Status Comments Brother Alive Father Alive Mother Alive Sister 2 Alive Social History Tobacco Use Types Packs/Day Years Used Date Smoking Tobacco: Former Cigarettes Smokeless Tobacco: Never Comments:Quit 2020 Alcohol Use Standard Drinks/Week Comments Yes 0 (1 standard drink = 0.6 oz pur e alcohol) rare Social Connections Answer Date Recorded Connectedness 0 02/07/2024 Financial Resource Strain Answer Date R ecorded Financial Resource Strain 0 2023 Stress Answer Date Recorded Stress 0 01/21/2024 Physical Activity Answer Date Recorded Physical Activity 0 01/21/2024 Food Insecurity Answer Date Recorded Food 0 02/17/2024 Transportation Needs Answer Date Record ed Transportation 0 01/21/2024 Housing Stability Answer Date Recorded Housing 0 01/21/2024 Safety and Environment Answer Date Senthil rded Safety 0 01/21/2024 Utilities Answer Date Recorded Utilities 0 01/21/2024 Employment Answer Date Recorded Stress 0 02/07/2024 Comments No Sex and Gender Information Value Date Recorded Sex Assigned at Female 01/21/2024 8:27 AM PDT Legal Sex Female 9:59 AM PDT Gender Identity Female 01/21/2024 8:27 AM PDT Sexual Orientation Bisexual 10/09/2024 11 :36 PM PDT Last Filed Vital Signs Vital Sign Reading Time Taken Comments Blood Pressure 126/84 10/17/2024 1:14 PM EDT Pulse 99 10/17/2024 1:14 PM EDT Temperature 36.7 C (98 F) 10/09/2024 1:18 PM EDT Respiratory Rate 16 10/17/2024 1:14 PM EDT Oxygen Saturation 98% 10/17/2024 1:14 PM EDT Inhaled Oxygen Concentration - - Weight 127 kg (280 lb) 10/17/2024 1:14 PM EDT Height 168.9 cm (5' 6.5 ) 10/17/2024 1:14 PM EDT Body Mass Index 44.52 10/17/2024 1:14 PM EDT Plan of Treatment Upcoming Encounters Date Type Department Care Team (Late st Contact Info) Description 12/11/2024 11:20 AM EDT Office Visit [facility] [address] [place] [phone] Nahum Pretty MD [address] [place] [address] Health Maintenance Due Date Last Done Comments Depression Monitoring 1987 HPV Screening 1987 Relationship Safety Screening/Counseling 12/04/2002 Imm-DTaP/Tdap/Td (1 - Tdap) 12/04/2006 Jal-VONAL-48 ( season) 2025 Postponed from 01/21 (Patient postponement) Imm-Influenza (#1) 2025 Anxiety Screening 10/09/2025 10/09/2024 Diabetes Screening 10/11/2025 10/11/2024, 10/11/2024, 03/28/2020 Hypertension Screening (#1) 10/17/2025 Tobacco Screening 10/17/2025 10/17/2024 Lipid Screening 10/12/2027 10/11/2024 Pap Smear 10/18/2027 10/17/2024 Cervical Cancer Screening 10/17/2029 Pap + HPV 10/17/2029 10/17/2024 HIV Screening Completed 08/05/2020, 03/28/2020 Alcohol and Drug Screen Addressed 10/09/2024 Over ridden with the intention of not completing the topic Hepatitis C Screening Completed 10/11/2024 Cervical Ablation/Cold-Knife Conization Discontinued Cervical Cryotherapy Discontinued Colposcopy Discontinued Endometrial Biopsy Discontinued Excision/Leep Discontinued HPV Genotyping Discontinued Imm-Hepatitis B Discontinued Vaginal Pap Discontinued Vulvoscopy Discontinued Procedures Procedure Name Priority Date/Time Associated Diagnosis Comments THINPREP IMAGING PAP, HPV MRNA E6/E7 RFLEX HPV 16,18/45 CT/NG Routine 10/17/2024 1:03 PM EDT Screening for HPV (human papillomavirus) TSH W/RFLX FREE T4 Routine 10/11/2024 12 :54 PM EDT Anxiety and depression Class 3 severe obesity with body mass index (BMI) of 40.0 to 44.9 in adult, unspecified obesity type, unspecified whether serious comorbidity present ([facility]) HEPATITIS B SURFACE AB QUANTITATIVE (CPT 30640) Routine 10/11/2024 12:54 PM EDT Encounter for medical examination to establish care Immunization due HEPATITIS C AB W/RFLX HCV RNA, QT, RT PCR Routine 10/11/2024 12:54 PM EDT Need for hepatitis C screening test COMPREHENSIVE METABOLIC PANEL Routine 10/11/2024 12:54 PM EDT Diabetes mellitus screening LIPID PANEL Routine 10/11/2024 12:54 PM EDT Diabetes mellitus screening Class 3 severe obesity with body mass index (BMI) of 40.0 to 44.9 in adult, unspecified obesity type, unspecified whether serious comorbidity present ([facility]) HEMOGLOBIN GLYCOSYLATED A1C Routine 10/11/2024 12:54 PM EDT Diabetes mellitus screening from Last 3 Months Results * THINPREP IMAGING PAP, HPV MRNA E6/E7 RFLEX HPV 16,18/45 CT/NG Cervical Swab Routine (10/17/2024 1:03 PM EDT) CHLAMYDIA TRACHOMATIS RNA, TMA NOT DETECTED NOT DETECTED [facility] NEISSERIA GONORRHOEAE RNA, TMA NOT DETECTED NOT DETECTED [facility] COMMENT [facility] CLINICAL INFORMATION See Note [facility] Comment:None given LMP See Note [facility] Comment:NONE GIVEN PREV. PAP See Note [facility] Comment:NONE GIVEN PREV. BX See Note [facility] Comment:NONE GIVEN SOURCE See Note [facility] Comment:Cervix STATEMENT OF ADEQUACY See Note [facility] Comment: Satisfactory for evaluation. Endocervical/transformation zone component absent. INTERPRETATION/RESU LT See Note [facility] Comment: Cytology Results: Negative for intraepithelial lesion or malignancy. INFECTION See Note [facility] Comment: Shift in vaginal jordan suggestive of bacterial vaginosis. COMMENT See Note [facility] Comment: This Pap test has been evaluated with computer assisted technology. PANTS MAKER See Note [employer] Comment: KR, CT(ASCP) CT screening location: [place] [address] COMMENT [facility] HPV MRNA E6/E7 Not Detected Not Detected [facility] Comment: Methodology: Tie Hacker-Mediated Amplification This assay detects E6/E7 viral messenger RNA (mRNA) from 14 high-risk HPV types (16,18,31,33,35,39,45,51,52,56,58,59,66,68). Cervical sources are required for HPV testing. If a vaginal source from a patient who has had a total hysterectomy with removal of cervix was submitted, please contact the testing laboratory for alternative testing options. For additional information, please refer to http://[employer].Concurrent Thinking/faq/WXH366n9 (This link if provided for information/ educational purposes only.) Swab Cervix uteri structure / Unknown 10/17/2024 1:03 PM EDT 10/18/2024 10:21 AM EDT Narrative [facility] - 10/22/2024 11:41 AM EDT EXPLANATORY NOTE: The Pap is a screening test for cervical cancer. It is not a diagnostic test and is subject to false negative and false positive results. It is most reliable when a satisfactory sample, regularly obtained, is submitted with relevant clinical findings and history, and when the Pap result is evaluated along with historic and current clinical information. The analytical performance characteristics of this assay, when used to test SurePath(TM) specimens have been determined by [employer]. The modifications have not been cleared or approved by the FDA. This assay has been validated pursuant to the CLIA regulations and is used for clinical purposes. For additional information, please refer to https://[employer].Concurrent Thinking/faq/GPO989 (This link is being provided for information/ educational purposes only.) Nahum Pretty MD LAB - PATHOLOGY AND CYTOLOGY AM BULATORY Final Result [facility] [address] [address], [facility] [address] [address] * HEPATITIS C AB W/RFLX HCV RNA, QT, RT PCR Routine (10/11/2024 12:54 PM EDT) HEPATITIS C ANTIBODY NON-REACT CATHERINE NON-REACT CATHERINE [facility] Comment: HCV antibody was non-reactive. There is no laboratory evidence of HCV infection. In most cases, no further action is required. However, if recent HCV exposure is suspected, a test for HCV RNA (test code 32266) is suggested. For additional information please refer to http://education.Concurrent Thinking/faq/OEU81h5 (This link is being provided for informational/ educational purposes only.) Blood Blood / Unknown 10/11/2024 1 2:54 PM EDT 10/11/2024 12:55 PM EDT Narrative [facility] - 10/12/2024 7:54 AM EDT FASTING:YES Ayesha PURVIS LAB - BLOOD DRAW Final Result Performing Organization Address [facility] Co de Phone Number [facility] [address] [address], [facility] [address] [address] * HEPATITIS B SURFACE AB QUANTITATIVE (CPT 78299) Routine (10/11/2024 12:54 PM EDT) HEPATITIS B SURFACE ANTIBODY (QUANT) 125 > OR = 10 mIU/mL [facility] Comment: PATIENT HAS IMMUNITY TO HEPATITIS B VIRUS. For additional information, please refer to http://[employer].Concurrent Thinking/faq/PWK858 (This link is being provided for informational/ educational purposes only). Blood Blood / Unknown 10/11/2024 1 2:54 PM EDT 10/11/2024 12:55 PM EDT Narrative [facility] - 10/12/2024 7:54 AM EDT FASTING:YES Ayesha PURVIS LAB - BLOOD DRAW Edited Result - Final Performing Organization Address [facility] Co de Phone Number [facility] [address] [address], [facility] [address] [address] * TSH W/RFLX FREE T4 Routine (10/11/2024 12:54 PM EDT) TSH W/REFLEX TO FT4 2.75 0.40 - 4.50 mIU/L [facility] Comment: Reference Range > or = 20 Years 0.40-4.50 Ranges First trimester 0.26-2.66 Second trimester 0.55-2.73 Third trimester 0.43-2.91 Blood Blood / Unknown 10/11/2024 1 2:54 PM EDT 10/11/2024 12:55 PM EDT Narrative [facility] - 10/12/2024 7:54 AM EDT FASTING:YES us Ayesha PURVIS LAB - BLOOD DRAW Edited Result - Final Performing Organization Address City/[facility]/ZIP Co de Phone Number [facility] [address] [address], [facility] [address] [address] * (ABNORMAL) HEMOGLOBIN GLYCOSYLATED A1C Routine (10/11/2024 12:54 PM EDT) HEMOGLOBIN A1C 6.0(H) <5.7 % [facility] Comment: For someone without known diabetes, a hemoglobin A1c value between 5.7% and 6.4% is consistent with prediabetes and should be confirmed with a follow-up test. For someone with known diabetes, a value <7% indicates that their diabetes is well controlled. A1c targets should be individualized based on duration of diabetes, age, comorbid conditions, and other considerations. This assay result is consistent with an increased risk of diabetes. Currently, no consensus exists regarding use of hemoglobin A1c for diagnosis of diabetes for children. Blood Blood / Unknown 10/11/2024 1 2:54 PM EDT 10/11/2024 12:55 PM EDT Narrative [facility] - 10/12/2024 7:54 AM EDT FASTING:YES us Ayesha PURVIS LAB - BLOOD DRAW Edited Result - Final Performing Organization Address City/[facility]/ZIP Co de Phone Number [facility] [address] [address], [facility] [address] [address] * (ABNORMAL) LIPID PANEL Routine (10/11/2024 12:54 PM EDT) CHOLESTEROL, TOTAL 160 <200 mg/dL [facility] HDL CHOLESTEROL 47(L) > OR = 50 mg/dL [facility] TRIGLYCERIDES 116 <150 mg/dL [facility] LDL-CHOLESTEROL 92 99 mg/dL (calc) [facility] Comment: Reference range: <100 Desirable range <100 mg/dL for primary prevention; <70 mg/dL for patients with CHD or diabetic patients with > or = 2 CHD risk factors. LDL-C is now calculated using the David calculation, which is a validated novel method providing better accuracy than the Friedewald equation in the estimation of LDL-C. Joseluis SS et al. MEY. 2013;310(19): 0583-3035 (http://education.Everest/faq/SFA080) CHOL/HDLC RATIO 3.4 <5.0 (calc) [facility] NON-HDL CHOLESTEROL 113 <130 mg/dL (calc) [facility] Comment: For patients with diabetes plus 1 major ASCVD risk factor, treating to a non-HDL-C goal of <100 mg/dL (LDL-C of <70 mg/dL) is considered a therapeutic option. Blood Blood / Unknown 10/11/2024 1 2:54 PM EDT 10/11/2024 12:55 PM EDT Narrative [facility] - 10/12/2024 7:54 AM EDT FASTING:YES Ayesha PURVIS LAB - BLOOD DRAW Final Result [facility] [address] [place] [id number], [facility] [address] [place] [phone] * COMPREHENSIVE METABOLIC PANEL Routine (10/11/2024 12:54 PM EDT) GLUCOSE 98 65 - 99 mg/dL [facility] Comment: Fasting reference interval UREA NITROGEN (BUN) 16 7 - 25 mg/dL [facility] CREATININE (blood) 0.76 0.50 - 0.97 mg/dL [facility] EGFR 104 > OR = 60 mL/min/1. 73m2 [facility] BUN/CREATININE RATIO SEE NOTE: [facility] Comment: Not Reported: BUN and Creatinine are within reference range. SODIUM 138 135 - 146 mmol/L [facility] POTASSIUM 4.4 3.5 - 5.3 mmol/L [facility] CHLORIDE 104 98 - 110 mmol/L [facility] CARBON DIOXIDE 25 20 - 32 mmol/L [facility] CALCIUM 9.1 8.6 - 10.2 mg/dL [facility] PROTEIN, TOTAL 7.3 6.1 - 8.1 g/dL [facility] ALBUMIN 4.3 3.6 - 5.1 g/dL [facility] GLOBULIN 3.0 1.9 - 3.7 g/dL (calc) [facility] ALBUMIN/GLOBULI N RATIO 1.4 1.0 - 2.5 (calc) [facility] BILIRUBIN, TOTAL 0.5 0.2 - 1.2 mg/dL [facility] ALKALINE PHOSPHATASE 67 31 - 125 U/L [facility] AST 13 10 - 30 U/L [facility] ALT 11 6 - 29 U/L [facility] Blood Blood / Unknown 10/11/2024 1 2:54 PM EDT 10/11/2024 12:55 PM EDT Narrative [facility] - 10/12/2024 7:54 AM EDT FASTING:YES Ayesha PURVIS LAB - BLOOD DRAW Edited Result - Final [facility] [address] [address], [facility] [address] [place] [address] from Last [address] [employer] Care Teams Cone Winder Relationship Specialty Start Date End Date Ayesha Stephen PA [address] [place] [address] PCP - General Primary Care 09/20/24
--- OUTSIDE RECORDS SUMMARY | 2024-11-28 15:32 | XMS_ITS | Clinical Summary ---
Author Organization [employer] Address [address] [place] [address] Care Team Providers Care Cement Car Dumper Name Role Phone Unavailable Primary Care Provider Unavailabl e Social History Tobacco Use Types Packs/Day Years Used Date Smoking Tobacco: Never Assessed Comments Unknown Sex and Gender Information Value Date Recorded Sex Assigned at Female 03/22/2022 10:37 AM EDT Legal Sex Female 10:37 AM EDT Gender Identity Choose not to disclose 10:37 AM EDT Sexual Orientation Choose not to disclose 2021 10:37 AM EDT Last Filed Vital Signs Vital Sign Reading Time Taken Comments Blood Pressure 122/68 08/15/2020 12:03 AM EDT Pulse 68 08/15/2020 12:03 AM EDT Temperature - - Respiratory Rate - - Oxygen Saturation - - Inhaled Oxygen Concentration - - Weight 122 kg (268 lb 9.6 oz) 08/15/2020 12:03 A M EDT Height 170.2 cm (5' 7 ) 08/15/2020 12:03 AM EDT Body Mass Index 42.07 08/15/2020 12:03 AM EDT Plan of Treatment Health Maintenance Due Date Last Done Comments Depression Screening 1987 Disability Screening 1987 Alcohol/Substance Use Screening 1999 Tobacco Screening 1999 Family Planning (PISQ) 12/04/2002 DTaP/Tdap/Td Vaccines (1 - Tdap) 12/04/2006 Hepatitis B Vaccines (3 of 3 - 19+ 3-dose series) 02/15/2021 09/12/2020, 08/15/2020 Pap Smear 08/06/2023 08/05/2020 COVID-19 Vaccine ( - 2023-2 5 season) 2024 Influenza Vaccine (#1) 2025 Cervical Cancer Screening 08/05/2025 HPV/Cotest 08/05/2025 08/05/2020 Zoster Vaccines (1 of 2) 12/04/2037 RSV Patients and Patients Aged 60 years or older (1 - 1-dose 75+ series) 12/04/2062 HIB Vaccines Aged Out No longer eligi ble based on patient's age to complete this topic HPV Vaccines Aged Out No longer eligi ble based on patient's age to complete this topic Hepatitis A Vaccines Aged Out No long er eligible based on patient's age to complete this topic IPV Vaccines Aged Out No longer eligi ble based on patient's age to complete this topic Meningococcal B Vaccine Aged Out No l onger eligible based on patient's age to complete this topic Meningococcal Vaccine Aged Out No gianluca low eligible based on patient's age to complete this topic Pneumococcal Vaccine: Pediatrics (0 to 5 Years) and At-Risk Patients (6 to 49) Years Aged Out No longer eligible b ased on patient's age to complete this topic RSV under 20 months Aged Out No longe r eligible based on patient's age to complete this topic Rotavirus Vaccines Aged Out No longer eligible based on patient's age to complete this topic Procedures Procedure Name Priority Date/Time Associated Diagnosis Comments HPV MRNA E6/E7 Routine 08/05/2020 10:42 AM EDT THINPREP PAP Routine 08/05/2020 10:42 AM EDT from Last 3 Months or Most Recently Relevant to Health Maintenance Results * THINPREP PAP (08/05/2020 10:42 AM EDT) Clinical Information: None given [facility] COMMENT SEE COMMENT [facility] Comment: EXPLANATORY NOTE: The Pap is a screening test for cervical cancer. It is not a diagnostic test and is subject to false negative and false positive results. It is most reliable when a satisfactory sample, regularly obtained, is submitted with relevant clinical findings and history, and when the Pap result is evaluated along with historic and current clinical information. Residential Sales Rep : SEE COMMENT [facility] Comment: MPG, CT(ASCP) CT screening location: [address] [address] Interpretation/R esult: Negative for intraepithelial lesion or malignancy. [facility] LMP: NONE GIVEN [facility] Prev. BX: NONE GIVEN [facility] Prev. PAP: NONE GIVEN [facility] Review Residential Sales Rep : SEE COMMENT [facility] Comment: RK, CT(ASCP) CT screening location: [place] [address] SOURCE: None given [facility] Statement Of Adequacy: SEE COMMENT [facility] Comment: Satisfactory for evaluation. Endocervical/transformation zone component present. Age and/or menstrual status not provided 08/05/2020 10:4 2 AM EDT Laura Kramer [facility] LAB PATHOLOGY ORDERABLES Final Result Performing Organization Address [facility] de Phone Number [facility] [address] * (ABNORMAL) HPV mRNA E6/E7 (08/05/2020 10:42 AM EDT) HPV nRNA E6/E7 Detected (A) Not Detected [facility] Comment: Methodology: Spinning And Winding Supervisor-Mediated Amplification This assay detects E6/E7 viral messenger RNA (mRNA) from 14 high-risk HPV types (16,18,31,33,35,39,45,51,52,56,58,59,66,68). The analytical performance characteristics of this assay have been determined by [employer]. The modifications have not been cleared or approved by the FDA. This assay has been validated pursuant to the CLIA regulations and is used for clinical purposes. For additional information, please refer to http://education.Fetise.com.Daojia/faq/CPJ402a2 (This link if provided for information/ educational purposes only.) 08/05/2020 10:[address] [facility] BLOOD ORDERABLES Luz l Result Performing Organization Address [facility] Co de Phone Number [facility] [address] [place] [address], [place] from Last 3 Months or Most Recently Relevant to Health Maintenance
== END 2024-11-28 15:23 | disposition home or self-care (01) ==
LOC: HO.US 15:22
PROVIDERS: Visit Provider Obstetrics & Gynecology Reproductive Endocrinology
DX: D25.9 Leiomyoma of uterus, unspecified (principal)
CPT/HCPCS: 76830; 76856

== ENCOUNTER → 2024-11-28 15:36 | Outpatient (BNV) | payer MEDICAID, SELFPAY | PROVIDERS: Visit Provider Radiology Diagnostic Radiology | DX: D25.9 Leiomyoma of uterus, unspecified (principal) | CPT/HCPCS: 76830; 76856 ==

== ENCOUNTER 2025-01-25 07:39 | Inpatient (IN) | payer MEDICAID, SELFPAY ==
[2025-01-25] VITALS (10 sets, daily range): BP systolic 125–151; BP diastolic 58–82; PULSE 68–90; RESP 16–20; TEMP 35.7–36.8; O2SAT 98–100; BMI 43.3
--- NOTE | ~2025-01-25 | CT_ITS ---
EXAMINATION: CT ABDOMEN AND PELVIS WITH CONTRAST CLINICAL INFORMATION: Abdominal pain, diarrhea, rectal pain, lump of the rectum, anemia. COMPARISON: None available. TECHNIQUE: Multidetector volumetric images were obtained from the superior aspect of the liver through the pubic symphysis following administration 85 mL of Omnipaque 350 intravenous contrast. Sagittal and coronal reformatted images were obtained on the technologist's workstation. Oral contrast: No This CT examination was performed using dose optimization techniques as appropriate, variously including the following: *Automated exposure control *Adjustment of mA and/or kV according to patient size (this includes techniques or standardized protocols for targeted exams where dose is matched to indication/reason for exam; i.e. extremities or head) *Use of iterative reconstruction technique FINDINGS: LUNG BASES: Lung bases are clear. Heart size is normal. There are no effusions. LIVER, GALLBLADDER, AND BILIARY TREE: The liver is normal in size, shape, and attenuation. No focal hepatic lesion or biliary ductal dilatation is present. The gallbladder is unremarkable with no evidence of radiopaque gallstones, gallbladder wall thickening, or obvious pericholecystic inflammatory changes. PANCREAS: Unremarkable. SPLEEN: Unremarkable. ADRENAL GLANDS: Unremarkable. KIDNEYS AND URETERS: The kidneys are normal in size, shape, and attenuation. No hydronephrosis, hydroureter, or calculi seen. No perinephric stranding. BLADDER: Suboptimally distended but grossly normal in appearance. GASTROINTESTINAL TRACT: The stomach is decompressed. The duodenum and small bowel have a normal appearance. A normal appendix is visualized. The colon is normal in course and caliber. There is mild wall thickening versus decompression of the descending colon and rectum, possibly representing colitis although evaluation is limited in the setting of underdistention. There is apparent mild hyperemia of the associated colonic mesentery. No gross abnormality in the perianal region is noted. ABDOMINAL WALL: No significant hernia is appreciated. LYMPH NODES: Normal. VASCULAR: Unremarkable. PELVIC VISCERA: The uterus is notably enlarged, likely on the basis of the known underlying large fibroid. There are polycystic ovaries bilaterally. OSSEOUS STRUCTURES: No suspicious lytic or blastic bone lesions.. CT/CT abdomen pelvis w IV con IMPRESSION: 1. Suspect left-sided colitis with rectal involvement although there is underdistention of these regions complicating interpretation. Correlate for signs and symptoms of colitis. 2. Enlargement of the uterus, likely on the basis of the known underlying large fibroid. There are polycystic ovaries bilaterally. Electronically signed by: Angus Eisenberg MD 01/25/2025 10:23 AM EDT
[2025-01-25 08:19] LABS: MANUAL DIFF FLAG NO
[2025-01-25 08:22] LABS: Hematocrit 23.4 % (37.0-47.0); Imm Gran Abs Auto 0.02 X10*3/uL (0.00-0.03); Imm Gran Pct Auto 0.3 % (0.0-0.4); Lymphocytes Absolute Auto 2.6 X10*3/uL (1.2-4.9); Mean Corpuscular HGB Conc 27.4 g/dl (31.0-35.0); Mean Corpuscular Hemoglobin 16.2 pg (27.0-33.0); NRBC Abs Auto 0.000 X10*3/uL (0.0-0.012); NRBC Pct Auto 0.0 /100WBC (0.0-0.2); Platelet Count 343 X10*3/uL (160-400); Red Blood Count 3.96 X10*6/uL (4.20-5.50); White Blood Count 8.0 X10*3/uL (4.8-10.8)
[2025-01-25 08:28] LABS: Mean Corpuscular Volume 59.1 fL (80.0-98.0)
[2025-01-25 08:30] LABS: Hemoglobin 6.4 g/dl (12.0-16.0)
[2025-01-25 08:40] LABS: Alanine Aminotransferase 22 U/L (0-31); Albumin Level 4.3 g/dL (3.5-5.0); Alkaline Phosphatase 55 U/L (39-117); Anion Gap 11 (12-20); Aspartate Amino Transferase 22 U/L (5-31); Blood Urea Nitrogen 11 mg/dL (9-16); Calcium 8.9 mg/dL (8.4-10.2); Carbon Dioxide 25 mmol/L (22-29); Chloride 108 mmol/L (96-108); Creatinine Clr Calc Pharmacy 146.4; Estimated Glomerular Filt Rate > 60; Lipase 25 U/L (8-78); Magnesium 1.9 mg/dL (1.6-2.6); Potassium 3.5 mmol/L (3.3-5.1); Sodium 140 mmol/L (135-145); Total Protein 7.0 g/dL (6.5-8.0)
--- NOTE | 2025-01-25 08:45 | ED_ITS ---
HPI - General Adult General Chief complaint: Nausea/Vomiting/Diarrhea Stated complaint: diarrhea Time Seen by Provider: 01/25/25 08:02 Source: patient Mode of arrival: ambulatory Limitations: no limitations History of Present Illness ED Provider: HYUN Almanzar HPI narrative: This is a 39-year-old female history of myoma, headaches, sleep apnea, depression and anxiety presenting to the emergency department with complaints of diarrhea, abdominal discomfort and rectal discomfort ongoing for the past month. She reports diffuse abdominal discomfort described as an achy pain. She reports she has had 2 bowel movements of completely liquid stool in the past 4 hours. Denies blood in stool however she does note that sometimes when she wipes there is blood on the toilet paper. Unclear if she is she reports unprotected sex. Patient tells me that she has not been feeling well over the past month. She denies recent antibiotic use, sick contacts, chest pain, shortness of breath, nausea, vomiting, palpitations, vision changes, dizziness, weakness, headache, changes in urination. Related Data Home Medications ?Medication ?Instructions ?Recorded ?Confirmed amitriptyline 25 mg tablet 25 mg PO DAILY 09/22/20 cyclobenzaprine 10 mg tablet 10 mg PO TID 09/22/20 propranolol 20 mg tablet 10 mg PO BID 09/22/20 sumatriptan succinate 100 mg tablet 100 mg PO Q2-4H ID N 09/22/20 Previous Rx's ?Medication ?Instructions ?Recorded amoxicillin 875 mg-potassium 1 tab PO Q12H 10 days #20 tabs 06/14/20 clavulanate 125 mg tablet (Augmentin) ibuprofen 600 mg tablet 600 mg PO Q8H PRN pain #30 t abs 06/14/20 xunupsgitd-srlaluladrpcw-czblmodp 1 cap PO Q8H PRN mary ellen n #10 caps 07/06/20 50 mg-300 mg-40 mg capsule (Fioricet) omeprazole 20 mg capsule,delayed 20 mg PO DAILY 30 day s #30 caps 10/13/21 release ondansetron 4 mg disintegrating 4 mg PO Q6-8H PRN naus ea and 10/13/21 tablet vomiting #14 tabs Allergies Allergy/AdvReac Type Severity Reaction Status Date / Time No Known Allergies Allergy Verified 01/25/25 07:43 Review of Systems 2 Review of Systems: Yes all other systems are reviewed and are negative PMFSH Past Medical History Attestation statement: The following information was validated with the patient. Source: old records reviewed and nursing notes reviewed Medical History (Reviewed 10/13/21 @ : by Wolf Fournier MD) Anxiety Carpal tunnel syndrome Depression Hemiplegic migraine Sleep apnea Vitamin B deficiency Surgical History (Reviewed 10/13/21 @ 09: by Wolf Fournier MD) Hx of dilation and curettage Social History Social History (Reviewed 10/13/21 @ 09: by Wolf Fournier MD) Alcohol intake: never Smoked in Last 30 Days: No Use of substances other than those prescribed or required for medical reasons: No Substance Use Type: Marijuana Advance Directives: No Advance Directives Information Provided: Yes Patient : No Physical Exam ED Exam Exam: Appearance: Alert.? Oriented X3.? No acute distress.? Head: Normocephalic, atraumatic, no step-offs or deformities Eyes: Pupils equal, round and reactive to light.? Neck: Normal inspection.? Neck supple.? CVS: Normal heart rate and rhythm.? Pulses normal.? Respiratory: No respiratory distress.? Breath sounds normal.? Abdomen: Soft and diffuse tenderness .? Skin: Skin warm and dry.? Normal skin color.? Normal skin turgor.? Extremities: No lower extremity edema.? No calf ttp. 5/5 strength to bilateral upper and lower extremities Neuro: Oriented X 3.? No motor deficit.? No sensory deficit. CN 2-12 intact Vital Signs: Vital Signs - 24 hr 01/25/25 07:42 01/25/25 09:59 01/25/25 10:17 Temperature 98.3 F 96.7 F L 96.5 F L Pulse Rate 78 71 72 Respiratory Rate 18 17 16 Blood Pressure 151/70 H 128/58 L 130/82 Pulse Oximetry 99 Oxygen Delivery Method Room Air 01/25/25 10:37 01/25/25 12:00 01/25/25 12:22 Temperature 96.5 F L 98.3 F 96.3 F L Pulse Rate 72 69 68 Respiratory Rate 16 16 17 Blood Pressure 130/82 131/70 131/70 Pulse Oximetry 100 98 Oxygen Delivery Method Room Air Room Air BMI result Body Mass Index 43.3 vss Course Reevaluation(s) Reevaluation #1: CBC with a microcytic anemia likely secondary to acute blood loss. Chemistry with no acute findings needing intervention. Urine, hCG pending. I did discuss these results with patient, and I obtained written and verbal consent for a blood transfusion. Patient's baseline hemoglobin is around 12. Today her hemoglobin is 6.4 and her hematocrit is 23.4. Placed inpatient chart. Time: 08:50 Reevaluation #2: I did discuss this case with GI Dr. Dinero who recommends antibiotic coverage. I will order Levaquin and Flagyl at this time. Patient is currently being transfused. I will discuss this case with hospitalist for admission. Patient will likely need to be scoped possibly Tuesday. Time: 12:42 Reevaluation #3: Patient is agreeable now to admission. I did start Levaquin and Flagyl. Plan hospital admission. Time: 13:59 Medications Administered Discontinued Medications Generic Name Dose Route Start Last Admin Trade Name Freq PRN Reason Stop Dose Admin Iohexol 100 ml 01/25/25 09:50 01/25/25 09:51 Iohexol 350 Mg/Ml 100 Ml Infus..Btl IV 01/25/25 09:51 85 ml ONCE ONE Administration Medical Decision Making Medical Decision Making [facility] Narrative: 0835 39-year-old female presents with diffuse abdominal discomfort, diarrhea ongoing for the past month. Also reporting some rectal discomfort in blood when she wipes. Physical exam diffuse abdominal discomfort no rebound tenderness. Vital signs are stable History and physical exam concerning for colitis versus gastroenteritis versus infectious diarrhea. Low suspicion for Clostridium difficile. Will rule out anemia. Rectal discomfort likely rectal fissure or hemorrhoid. Rectal bleeding likely secondary to fissure hemorrhoid. I do not suspect massive hemorrhage. Patient deferred rectal exam Plan labs, urine, CT abdomen and pelvis, GI panel and OBS Differential Diagnosis Differential Diagnoses: The differential diagnosis associated with the presentation includes ( History and physical exam concerning for colitis versus gastroenteritis versus infectious diarrhea. Low suspicion for Clostridium difficile. Will rule out anemia. Rectal discomfort likely rectal fissure or hemorrhoid. Rectal bleeding likely secondary to fissure hemorrhoid. I do not suspect mas) Admission/Observation Consideration of admission/observation: Escalation of care including admission/observation considered (possible ) Lab Data [facility] Lab Attestation statement: I reviewed the patient's lab results. 01/25/25 08:15 09/05/25 08:15 Labs: Lab Results 01/25/25 01/25/25 01/25/25 Range/Units 08:15 08:42 10:29 WBC 8.0 (4.8-10.8) X10*3/uL RBC 3.96 L (4.20-5.50) X10*6/uL Hgb 6.4 L* (12.0-16.0) g/dl Hct 23.4 L (37.0-47.0) % MCV 59.1 L (80.0-98.0) fL MCH 16.2 L (27.0-33.0) pg MCHC 27.4 L (31.0-35.0) g/dl RDW 20.6 H (11.0-16.0) % Plt Count 343 (160-400) X10*3/uL MPV 9.3 L (9.4-12.3) fL Immature Gran % (Auto) 0.3 (0.0-0.4) % Neut % (Auto) 50.4 (45-73) % Lymph % (Auto) 33.0 (20-40) % [place] % (Auto) 7.3 (2-11) % Eos % (Auto) 8.0 H (0-4) % Baso % (Auto) 1.0 (0-2) % Lymph # (Auto) 2.6 (1.2-4.9) X10*3/uL [place] # (Auto) 0.6 (0.1-1.2) X10*3/uL Eos # (Auto) 0.6 H (0.0-0.4) X10*3/uL Baso # (Auto) 0.1 (0.0-0.2) X10*3/uL Abs Immat Gran (auto) 0.02 (0.00-0.03) X10*3/uL Absolute Neuts (auto) 4.0 (2.0-8.3) x10*3/uL Absolute Nucleated RBC 0.000 (0.0-0.012) X10*3/uL Nucleated RBC % (auto) 0.0 (0.0-0.2) /100WBC Sodium 140 (135-145) mmol/L Potassium 3.5 (3.3-5.1) mmol/L Chloride 108 (96-108) mmol/L Carbon Dioxide 25 (22-29) mmol/L Anion Gap 11 L (12-20) BUN 11 (9-16) mg/dL Creatinine 0.73 (0.5-1.4) mg/dL Estim Creat Clear Calc 146.4 Estimated GFR > 60 Fasting Glucose 102 H (60-99) mg/dL Calcium 8.9 (8.4-10.2) mg/dL Magnesium 1.9 (1.6-2.6) mg/dL Iron 11 L (30-160) mcg/dL TIBC 426 (228-428) mcg/dL % Saturation 3 L (15-50) % Unsat Iron Binding 415 ug/dL Total Bilirubin 0.6 (0.0-1.0) mg/dL AST 22 (5-31) U/L ALT 22 (0-31) U/L Alkaline Phosphatase 55 (39-117) U/L Total Protein 7.0 (6.5-8.0) g/dL Albumin 4.3 (3.5-5.0) g/dL Lipase 25 (8-78) U/L Beta HCG, Quant < 2 mIU/mL Urine Color Yellow Urine Appearance Clear Urine pH 6.5 (5.0-9.0) Ur Specific [place] 1.020 (1.005-1.025) Urine Protein Negative (Neg-Trace) mg/dL Urine Glucose (UA) Negative (Negative) mg/dL Urine Ketones Negative (Negative) mg/dL Urine Blood Negative (Negative) Urine Nitrite Negative (Negative) Ur Leukocyte Esterase Negative (Negative) Blood Type A Positive Antibody Screen NEGATIVE Crossmatch See Detail Independent Interpretation I performed an independent interpretation of an: CT Scan Radiology Impression Discussion of test interpretation with radiology: I have reviewed the radiologist's reading. External Record Review External record reviewed: Inpatient record, Office record, Outpatient record, Prior outpatient labs, Prior outpatient radiology, Primary care record and Outside ED record Critical Care Time Critical Care Time Critical Care Time: Yes Total Critical Care Time: 35 Attestation: I attest to this time spent taking care of the patient, obtaining history, physical, reviewing labs, imaging, treatment of patients condition +/- specialist/hospitalist consult +/- procedure Discharge Plan Discharge Clinical Impression: Painless rectal bleeding, Abdominal pain, Hypochromic-microcytic anemia, Colitis Patient Disposition: Admitted As Inpatient Print Language: Swiss
--- NOTE | 2025-01-25 08:47 | PC.NURSE ---
Pt pale on arrival with pale conjunctivae/mucosa; pt hyperverbal/anxious; reports scant blood when wiping after BM's; reports occasional heavy menses; denies abd pain at this time; Hbg 6.4; provider at bedside to speak with pt; type and screen processing; blood consent signed/in chart
--- OUTSIDE RECORDS SUMMARY | 2025-01-25 09:10 | XMS_ITS | Clinical Summary ---
Author Organization [facility] Address [address] [place] [address] Care Team Providers Care Mysql Developer Name Role Phone Ayesha Stephen Primary Care Provider [phone] Source Comments PLEASE NOTE, if this patient [...] Encounters Date Type Department Care Team Description 12/14/2024 Results Follow-Up [address] [phone] Nahum Pretty MD 12/11/2024 11:20 AM EDT Office Visit [address] [phone] Nahum Pretty MD 11/03/2024 Results Follow-Up [address] [phone] Ayesha Stephen PA from Last 3 Months Family History Medical History Relation Name Comments Graves' disease Father Relation Name Status Comments Brother Alive Father Alive Mother Alive Sister 2 Alive Social History Tobacco Use Types Packs/Day Years Used Date Smoking Tobacco: Former Cigarettes Smokeless Tobacco: Never Tobacco Cessation:Counseling Given: Not Answered Comments:Quit 2020 Alcohol Use Standard Drinks/Week Comments [...] Sign Reading Time Taken Comments Blood Pressure 122/67 12/11/2024 11:18 AM EDT Pulse 91 12/11/2024 11:18 AM EDT Temperature 36.7 C (98 F) 10/09/2024 1:18 PM EDT Respiratory Rate 16 12/11/2024 11:18 AM EDT Oxygen Saturation 98% 12/11/2024 11:18 AM EDT Inhaled Oxygen Concentration - - Weight 128.8 kg (284 lb) 12/11/2024 11:18 AM EDT Height 168.9 cm (5' 6.5 ) 12/11/2024 11:18 AM ED T Body Mass Index 45.15 12/11/2024 11:18 AM EDT Plan of Treatment Health Maintenance Due Date Last Done Comments Depression Monitoring 1987 HPV Screening 1987 Relationship Safety Screening/Counseling 12/04/2002 Imm-DTaP/Tdap/Td (1 - Tdap) 12/04/2006 [id number] ( season) 2024 Imm-Influenza (#1) 2025 Anxiety Screening 10/09/2025 10/09/2024 Diabetes Screening 10/11/2025 10/11/2024, 10/11/2024, 03/28/2020 Hypertension Screening (#1) 12/11/2025 Tobacco Screening 12/11/2025 12/11/2024 Lipid Screening 10/12/2027 10/11/2024 Pap Smear 10/18/2027 10/17/2024 Cervical Cancer Screening 10/17/2029 Pap + HPV 10/17/2029 10/17/2024 HIV Screening Completed 08/05/2020, 08/05/2020, 03/28/2020 Alcohol and Drug Screen Addressed 10/09/2024 Over ridden with the intention of not completing the topic Hepatitis C Screening Completed 10/11/2024 Cervical Ablation/Cold-Knife Conization Discontinued Cervical Cryotherapy Discontinued Colposcopy Discontinued Endometrial Biopsy Discontinued Excision/Leep Discontinued HPV Genotyping Discontinued Imm-Hepatitis B Discontinued Vaginal Pap Discontinued Vulvoscopy Discontinued Procedures Procedure Name Priority Date/Time Associated Diagnosis Comments IMAGING SCANNED DOCUMENT 12/11/2024 3:00 AM EDT US PELVIC NONOBSTETRIC REAL-TIME IMAGE COMPLETE Routine 11/28/2024 3:00 AM EDT Uterine leiomyoma, unspecified location THINPREP IMAGING PAP, HPV MRNA E6/E7 RFLEX HPV 16,18/45 CT/NG Routine 10/17/2024 1:03 PM EDT Screening for HPV (human papillomavirus) HEPATITIS C AB W/RFLX HCV RNA, QT, RT PCR Routine 10/11/2024 12:54 PM EDT Need for hepatitis C screening test HEMOGLOBIN GLYCOSYLATED A1C Routine 10/11/2024 12:54 PM EDT Diabetes mellitus screening LIPID PANEL Routine 10/11/2024 12:54 PM EDT Diabetes mellitus screening Class 3 severe obesity with body mass index (BMI) of 40.0 to 44.9 in adult, unspecified obesity type, unspecified whether serious comorbidity present (CMS & HHS-HCC) from Last 3 Months or Most Recently Relevant to Health Maintenance Results * IMAGING SCANNED DOCUMENT (12/11/2024 3:00 AM EDT) 12/11/2024 3:00 AM EDT us Nahum Pretty MD SCAN IMAGING Final Result * US PELVIC NONOBSTETRIC REAL-TIME IMAGE COMPLETE (11/28/2024 3:00 AM EDT) Anatomical Region Laterality Modality Ultrasound 11/28/2024 3:00 AM EDT us Nahum Pretty MD IMG ULTRASOUND PELVIC NON-OB Fi nal Result * THINPREP IMAGING PAP, HPV MRNA E6/E7 RFLEX HPV 16,18/45 CT/NG Cervical Swab Routine (10/17/2024 1:03 PM EDT) CHLAMYDIA TRACHOMATIS RNA, TMA NOT DETECTED NOT DETECTED [facility] NEISSERIA GONORRHOEAE RNA, TMA NOT DETECTED NOT DETECTED [facility] COMMENT [facility] CLINICAL INFORMATION See Note [facility] Comment:None given LMP See Note [facility] Comment:NONE GIVEN PREV. PAP See Note [facility] Comment:NONE GIVEN PREV. BX See Note [facility] Comment:NONE GIVEN SOURCE See Note [facility] Comment:Cervix STATEMENT OF ADEQUACY See Note [facility] Comment: Satisfactory for evaluation. Endocervical/transformation zone component absent. INTERPRETATION/RESU LT See Note [facility] Comment: Cytology Results: Negative for intraepithelial lesion or malignancy. INFECTION See Note [facility] Comment: Shift in vaginal jordan suggestive of bacterial vaginosis. COMMENT See Note [facility] Comment: This Pap test has been evaluated with computer assisted technology. CARE INFORMATION ASSOCIATE See Note [facility] [employer] Comment: KR, CT(ASCP) CT screening location: [address] [address] COMMENT [facility] HPV MRNA E6/E7 Not Detected Not Detected [facility] Comment: Methodology: Vice President Talent Management-Mediated Amplification This assay detects E6/E7 viral messenger RNA (mRNA) from 14 high-risk HPV types (16,18,31,33,35,39,45,51,52,56,58,59,66,68). Cervical sources are required for HPV testing. If a vaginal source from a patient who has had a total hysterectomy with removal of cervix was submitted, please contact the testing laboratory for alternative testing options. For additional information, please refer to http://[employer].Mavin/faq/XNR483h1 (This link if provided for information/ educational purposes only.) Swab Cervix uteri structure / Unknown 10/17/2024 1:03 PM EDT 10/18/2024 10:21 AM EDT Narrative [facility] [employer] [facility] - 10/22/2024 11:41 AM EDT EXPLANATORY NOTE: [...] test SurePath(TM) specimens have been determined by [facility]. The modifications have not been cleared or approved by the FDA. This assay has been validated pursuant to the CLIA regulations and is used for clinical purposes. For additional information, please refer to https://[employer]/faq/HCX268 (This link is being provided for information/ educational purposes only.) Nahum Pretty MD LAB - PATHOLOGY AND CYTOLOGY AM BULATORY Final Result [id number] [address] [address], [facility] [address] [address] * HEPATITIS C AB W/RFLX HCV RNA, QT, RT PCR Routine (10/11/2024 12:54 PM EDT) HEPATITIS C ANTIBODY NON-REACT CATHERINE NON-REACT CATHERINE [facility] Comment: HCV antibody was non-reactive. There is no laboratory evidence of HCV infection. In most cases, no further action is required. However, if recent HCV exposure is suspected, a test for HCV RNA (test code 93266) is suggested. For additional information please refer to http://[employer].Mavin/faq/CPD00w1 (This link is being provided for informational/ educational purposes only.) Blood Blood / Unknown 10/11/2024 1 2:54 PM EDT 10/11/2024 12:55 PM EDT Narrative [facility] - 10/12/2024 7:54 AM EDT FASTING:YES us Ayesha PURVIS LAB - BLOOD DRAW Final Result Performing Organization Address [facility] Co de Phone Number [id number] [address] [address], [facility] [address] [phone] * (ABNORMAL) HEMOGLOBIN GLYCOSYLATED A1C Routine (10/11/2024 12:54 PM EDT) HEMOGLOBIN A1C 6.0(H) <5.7 % [id number] Comment: For someone without known diabetes, [...] PM EDT 10/11/2024 12:55 PM EDT Narrative [id number] - 10/12/2024 7:54 AM EDT FASTING:YES us Ayesha PURVIS LAB - BLOOD DRAW Edited Result - Final Performing Organization Address [facility]/ZIP Co de Phone Number [id number] [address] [address], [employer] [address] [address] * (ABNORMAL) LIPID PANEL Routine (10/11/2024 12:54 PM EDT) CHOLESTEROL, TOTAL 160 <200 mg/dL [id number] HDL CHOLESTEROL 47(L) > OR = 50 mg/dL [id number] TRIGLYCERIDES 116 <150 mg/dL [facility] LDL-CHOLESTEROL 92 99 mg/dL (calc) [facility] Comment: Reference range: <100 Desirable range <100 mg/dL for primary prevention; <70 mg/dL for patients with CHD or diabetic patients with > or = 2 CHD risk factors. LDL-C is now calculated using the David calculation, which is a validated novel method providing better accuracy than the Friedewald equation in the estimation of LDL-C. Joseluis SS et al. MEY. 2013;310(19): 5730-8274 (http://education.CollegeBrain/faq/JJT641) CHOL/HDLC RATIO 3.4 <5.0 (calc) [facility] NON-HDL CHOLESTEROL 113 <130 mg/dL (calc) [facility] Comment: For patients with diabetes plus 1 major ASCVD risk factor, treating to a non-HDL-C goal of <100 mg/dL (LDL-C of <70 mg/dL) is considered a therapeutic option. Blood Blood / Unknown 10/11/2024 1 2:54 PM EDT 10/11/2024 12:55 PM EDT Narrative [facility] - 10/12/2024 7:54 AM EDT FASTING:YES Ayesha PURVIS LAB - BLOOD DRAW Final Result [facility] [address] [address], [facility] [address] [place] [phone] from Last 3 Months or Most Recently Relevant to Health Maintenance Insurance [employer] Care Teams Mysql Developer Relationship Specialty Start [place] [address] [place] [phone] PCP - General Primary Care 09/20/24
--- OUTSIDE RECORDS SUMMARY | 2025-01-25 09:10 | XMS_ITS | Clinical Summary ---
Author Organization [employer] Address [address] [facility] [address] [place] [address] Care Team Providers Care Paver Layer Name Role Phone Unavailable Primary Care Provider Unavailabl e Encounters Date Type Department Care Team Description 12/11/2024 Population Health Risk Score [facility] (C3) Department [address] [facility] [address] [place] [id number] Provider, Population Health Generic from Last 3 Months Social History Tobacco Use Types Packs/Day Years [...] Tobacco Screening 1999 Family Planning (PISQ) 12/04/2002 HPV Vaccines (1 - 3-dose series) 12/04/2002 DTaP/Tdap/Td Vaccines (1 - Tdap) 12/04/2006 Hepatitis B Vaccines (3 of 3 - 19+ 3-dose series) 02/15/2021 09/12/2020, 08/15/2020 Pap Smear 08/06/2023 08/05/2020 COVID-19 Vaccine (1 - 2023-2 5 season) 2025 Influenza Vaccine (#1) 2025 Lipid Panel 03/28/2025 03/28/2020 Cervical Cancer Screening 08/05/2025 HPV/Cotest 08/05/2025 08/05/2020 Zoster Vaccines (1 of 2) 12/04/2037 RSV Patients and Patients Aged 60 years or older (1 - 1-dose 75+ series) 12/04/2062 HIV Screening Completed 08/05/2020, 03/28/2020 Hepatitis C Screening Completed 08/05/2020 HIB Vaccines Aged Out No longer eligi [...] Procedure Name Priority Date/Time Associated Diagnosis Comments ZZZ HISTORICAL HEPATITIS C AB W/REFL TO HCV RNA, QN, PCR Routine 08/05/2020 1:43 PM EDT HIV 1/2 ANTIGEN/ANTIBODY, FOURTH GENERATION W/RFL Routine 08/05/2020 1:43 PM EDT HPV MRNA E6/E7 Routine 08/05/2020 10:42 AM EDT THINPREP PAP Routine 08/05/2020 10:42 AM EDT LIPID PANEL, STANDARD Routine 03/28/2020 11:25 AM EST from Last 3 Months or Most Recently Relevant to Health Maintenance Results * HEPATITIS C AB W/REFL TO HCV RNA, QN, PCR (08/05/2020 1:43 PM EDT) HEPATITIS C ANTIBODY NON-REACT CATHERINE NON-REACT CATHERINE [facility] INDEX 0.01 <1.00 [facility] Comment: HCV antibody was non-reactive. There is no laboratory evidence of HCV infection. In most cases, no further action is required. However, if recent HCV exposure is suspected, a test for HCV RNA (test code 37754) is suggested. For additional information please refer to http://View Medical.[employer] Motion/faq/SBJ33n8 (This link is being provided for informational/ educational purposes only.) 08/05/2020 1:43 PM EDT Laura Kramer CNM HISTORICAL/NON ORDERABLE LABS Final Result [facility] [address] * HIV 1/2 ANTIGEN/ANTIBODY,FOURTH GENERATION W/RFL (08/05/2020 1:43 PM EDT) HIV-1/2 ANTIGEN AND ANTIBODIES, 4TH GENERATION W/ REFLEX NON-REACT CATHERINE NON-REACT CATHERINE [facility] Comment: HIV-1 antigen and HIV-1/HIV-2 antibodies were not detected. There is no laboratory evidence of HIV infection. PLEASE NOTE: This information has been disclosed to you from records whose confidentiality may be protected by state law. If your state requires such protection, then the state law prohibits you from making any further disclosure of the information without the specific written consent of the person to whom it pertains, or as otherwise permitted by law. A general authorization for the release of medical or other information is NOT sufficient for this purpose. For additional information please refer to http://education.Intuitive Motion/faq/PHW630 (This link is being provided for informational/ educational purposes only.) The performance of this assay has not been clinically validated in patients less than 2 years old. 08/05/2020 1:43 PM EDT Laura DE SANTIAGO LAB BLOOD ORDERABLES Luz l Result Performing Organization Address [facility] de Phone Number [facility] [address] [place] [address], [place] * THINPREP PAP (08/05/2020 10:42 AM EDT) Clinical Information: None given [facility] COMMENT SEE COMMENT [facility] [...] along with historic and current clinical information. Senior Accounting Manager : SEE COMMENT [facility] Comment: MPG, CT(ASCP) CT screening location: [place] [address] Interpretation/R esult: Negative for intraepithelial lesion or malignancy. [facility] LMP: NONE GIVEN [facility] Prev. BX: NONE GIVEN [facility] Prev. PAP: NONE GIVEN [facility] Review Senior Accounting Manager : SEE COMMENT [facility] Comment: RK, CT(ASCP) CT screening location: [place] [address] SOURCE: None given [facility] Statement Of Adequacy: SEE COMMENT [facility] Comment: Satisfactory for evaluation. Endocervical/transformation zone component present. Age and/or menstrual status not provided 08/05/2020 10:4 2 AM EDT Laura DE SANTIAGO LAB PATHOLOGY ORDERABLES Final Result Performing Organization Address [facility] Co de Phone Number [facility] [address] [place] [address], * (ABNORMAL) HPV mRNA E6/E7 (08/05/2020 10:42 AM EDT) Pathologist [facility] HPV nRNA E6/E7 Detected (A) Not Detected [facility] Comment: Methodology: Recreation Leader-Mediated Amplification This assay detects E6/E7 viral messenger RNA (mRNA) from 14 high-risk HPV types (16,18,31,33,35,39,45,51,52,56,58,59,66,68). The analytical performance characteristics of this assay have been determined by [employer]. The modifications have not been cleared or approved by the FDA. This assay has been validated pursuant to the CLIA regulations and is used for clinical purposes. For additional information, please refer to http://education.Intuitive Motion/faq/PQT184w6 (This link if provided for information/ educational purposes only.) 08/05/2020 10:4 2 AM EDT us Laura DE SANTIAGO LAB BLOOD ORDERABLES Luz rosas Result [facility] [address] * (ABNORMAL) LIPID PANEL, STANDARD (03/28/2020 11:25 AM EST) [facility] Cholesterol, Total 160 <200 mg/dL [facility] HDL Cholesterol 42(L) > OR = 50 mg/dL [facility] Triglycerides 97 <150 mg/dL [facility] LDL Cholesterol 99 mg/dL (calc) [facility] Comment: Reference range: <100 Desirable range <100 mg/dL for primary prevention; <70 mg/dL for patients with CHD or diabetic patients with > or = 2 CHD risk factors. LDL-C is now calculated using the Joseluis-Saira calculation, which is a validated novel method providing better accuracy than the Friedewald equation in the estimation of LDL-C. Joseluis LOVELACE et al. MEY. 2013;310(19): 1106-0257 (http://education.MyTinks/faq/JXI828) Chol/HDLC Ratio 3.8 <5.0 (calc) [facility] Non-HDL Cholesterol 118 <130 mg/dL (calc) [facility] Comment: For patients with diabetes plus 1 major ASCVD risk factor, treating to a non-HDL-C goal of <100 mg/dL (LDL-C of <70 mg/dL) is considered a therapeutic option. Cholesterol, Total 160 <200 mg/dL [facility] HDL Cholesterol 42(L) > OR = 50 mg/dL [facility] Triglycerides 97 <150 mg/dL [facility] LDL Cholesterol 99 mg/dL (calc) [facility] Comment: Reference range: <100 Desirable range <100 mg/dL for primary prevention; <70 mg/dL for patients with CHD or diabetic patients with > or = 2 CHD risk factors. LDL-C is now calculated using the David calculation, which is a validated novel method providing better accuracy than the Friedewald equation in the estimation of LDL-C. Joseluis SS et al. MEY. 2013;310(19): 8214-9406 (http://education.[employer]Glue.[employer]/faq/PBQ570) Chol/HDLC Ratio 3.8 <5.0 (calc) [facility] Non-HDL Cholesterol 118 <130 mg/dL (calc) [facility] Comment: For patients with diabetes plus 1 major ASCVD risk factor, treating to a non-HDL-C goal of <100 mg/dL (LDL-C of <70 mg/dL) is considered a therapeutic option. 03/28/2020 11:2 5 AM EST us Navarro Kimble MD LAB BLOOD ORDERABL ES Final Result [facility] [address] from Last 3 Months or Most Recently Relevant to Health Maintenance
--- OUTSIDE RECORDS SUMMARY | 2025-01-25 09:10 | XMS_ITS | Encounter Summary ---
Author Organization [employer] Address [address] [place] [address] 7 [place] [address] Care Team Providers Care Occupational Therapy Program Director Name Role Phone Navarro Dumont MD Primary Care Prov ider Encounter Details Date Type Department Care Team (Latest Contact Info) Description 08/06/2020 Abstract [facility] CONVERSIONS Dental, Provider, DDS Social History Tobacco Use Types Packs/Day Years Used Date Smoking Tobacco: Never Assessed Comments Unknown Sex and Gender Information Value Date Recorded Sex Assigned at Female 03/22/2022 10:37 AM EDT Legal Sex Female 10:37 AM EDT Gender Identity Choose not to disclose 10:37 AM EDT Sexual Orientation Choose not to disclose 2021 10:37 AM EDT documented as of this encounter Plan of Treatment Not on file documented as of this encounter Visit Diagnoses Not on filedocumented in this encounter Care Teams Occupational Therapy Program Director Relationship Specialty Start Date End Date Navarro Dumont MD [address] [place] [id number] PCP - General Internal Medicine 02/15/20 05/29/23 documented as of this encounter
[2025-01-25 09:32] LABS: Iron 11 mcg/dL (30-160); Percent Iron Saturation 3 % (15-50); Total Iron Binding Capacity 426 mcg/dL (228-428); Unsaturated Iron Binding 415 ug/dL
[2025-01-25] MEDS: iohexoL 350 MG/ML 100 ML INFUS..BTL IV (09:51)
--- NOTE | 2025-01-25 10:37 | PC.NURSE ---
No adverse reaction to blood transfusion noted after initial 1 minutes; vss; will cont to monitor
[2025-01-25 10:54] LABS: Appearance Urine Clear; Glucose Urine UA Negative (Negative); PH 6.5 (5.0-9.0); Specific Gravity - Urine 1.020 (1.005-1.025)
--- NOTE | 2025-01-25 12:30 | PC.NURSE ---
Pt's first unit RBC's completed; no adverse reaction noted/reported at this time; vss; awaiting repeat CBC; pt remains NPO pending GI consult
--- NOTE | 2025-01-25 13:49 | PC.NURSE ---
Pt extremely difficult blood draw; phlebotomy at bedside to attempt to obtain CBC after multiple attempts by ED staff
[2025-01-25 13:56] LABS: MANUAL DIFF FLAG NO
[2025-01-25 14:02] LABS: Hematocrit 27.8 % (37.0-47.0); Hemoglobin 7.7 g/dl (12.0-16.0); Imm Gran Abs Auto 0.04 X10*3/uL (0.00-0.03); Imm Gran Pct Auto 0.5 % (0.0-0.4); Lymphocytes Absolute Auto 2.4 X10*3/uL (1.2-4.9); Mean Corpuscular HGB Conc 27.7 g/dl (31.0-35.0); Mean Corpuscular Hemoglobin 17.1 pg (27.0-33.0); NRBC Abs Auto 0.000 X10*3/uL (0.0-0.012); NRBC Pct Auto 0.0 /100WBC (0.0-0.2); Platelet Count 364 X10*3/uL (160-400); Red Blood Count 4.51 X10*6/uL (4.20-5.50); White Blood Count 8.2 X10*3/uL (4.8-10.8)
[2025-01-25 14:05] LABS: Mean Corpuscular Volume 61.6 fL (80.0-98.0)
--- NOTE | 2025-01-25 14:37 | PC.NURSE ---
Pt's repeat CBC finally obtained by phlebotomy, 7.7; TYRELLC made aware and 2nd unit RBC's on hold at this time; admitting provider at bedside to evaluate pt; pt tolerating PO liquid diet
--- NOTE | 2025-01-25 14:55 | PHA.MEDREC ---
Pharmacy Consult ? Medication Reconciliation Pharmacy has completed the medication reconciliation. Spoke with pt and she confirmed she is not taking any medications at this time.
--- NOTE | 2025-01-25 15:06 | PM.IMHP ---
History of Present Illness Date of Service: 01/25/25 Attending physician on admission: Randy Smyth Chief Complaint: diarrhea This is a 39-year-old female with history of pernicious anemia who presents to the emergency department with diarrhea. Patient states she has had 1 month history of crampy abdominal pain followed by diarrhea. She has an average of approximately 3-5 episodes per day. The diarrhea is non-bloody, but she does notice some blood on the toilet paper after she goes to the bathroom. She has no associated fever or chills. She denies any personal history of inflammatory bowel disease. She does have a history of pernicious anemia but no longer takes B12 injections. She does have history of uterine fibroid and abnormal uterine bleeding. She has never required blood transfusion in the past. In the emergency department she was afebrile, lab work revealed no leukocytosis but she was noted to be anemic. Her H/H was 6.4/23.4. Last available lab work for comparison was in 2020 and at that time her H/H was normal. She had CT scan of the abdomen and pelvis which showed left-sided colitis with rectal involvement. She received IV antibiotics, and one unit of blood and will be admitted for further work up related to anemia and colitis. Review of Systems Review of Systems: Yes all other systems are reviewed and are negative Constitutional: Constitutional: Denies chills and Denies fever(s) Cardiovascular: Cardiovascular: Denies chest pain, Denies palpitations and Denies dyspnea Respiratory: Respiratory: Denies cough and Denies dyspnea Gastrointestinal: Gastrointestinal: Denies abdominal pain, Reports diarrhea, Reports nausea and Denies vomiting Endocrine: Endocrine: Denies palpitations [facility] Medical History Hemiplegic migraine Carpal tunnel syndrome Anxiety Depression Vitamin B deficiency Sleep apnea Surgical History Hx of dilation and curettage Social History Household Members: Significant Other and Family Housing: Apartment Do you presently have visiting nurse or other home services: No Alcohol intake: never Patient Tobacco Use Status: Former Tobacco user Smoked in Last 30 Days: No Use of substances other than those prescribed or required for medical reasons: No Substance Use Type: Marijuana Currently Displaying Signs/Symptoms of Drug Intoxication Withdrawal: No Have you been hit, kicked, punched, or otherwise hurt by someone within the past year? If so, by whom?: No Do you feel safe in your current relationship?: Yes Is there a partner from a previous relationship who is making you feel unsafe now?: No Are you made to feel afraid or neglected: No Advance Directives: No Advance Directives Information Provided: Yes Do you have a plan to hurt others: No Plan Recently lost weight without trying: No Eating poorly because of decreased appetite: No Nutrition Risks: No Nutritional Risk Patient : No : No Poor oral hygiene: No Meds Allergies Allergy/AdvReac Type Severity Reaction Status Date / Time No Known Allergies Allergy Verified 01/25/25 07:43 Active Medications: Current Medications Acetaminophen (Acetaminophen 325 Mg Tablet) 650 mg PO Q6H PRN PRN Reason: Pain, Mild 1-3,fever,headache Calcium Carbonate (Calcium Carbonate 750 Mg Tab.Chew) 750 mg PO Q4H PRN PRN Reason: Heartburn Magnesium Hydroxide (Milk Of Magnesia 30 Ml Oral.Susp) 30 ml PO DAILY PRN PRN Reason: Constipation Melatonin (Melatonin 3 Mg Tablet) 6 mg PO BEDTIME PRN PRN Reason: Insomnia Morphine Sulfate (Morphine Sulfate 4 Mg/Ml Cartridge) 2 mg IVPUSH Q4H PRN; Protocol PRN Reason: Pain, Severe (Pain Scale 7-10) Ondansetron HCl (Ondansetron Hcl 4 Mg/2 Ml Vial) 4 mg IVPUSH Q8H PRN PRN Reason: Nausea and Vomiting Sodium Chloride (0.9 % Sodium Chloride Flush 3 Ml Syringe) 3 [facility] Medications ?Medication ?Instructions ?Recorded ?Confirmed ?Last Taken ?Type No Known Home Meds 01/25/25 01/25/25 Unknown History Physical Exam Vital Signs and Narrative: Vital Signs: Last Vital Signs Temp 98.1 F 01/25/25 14:10 Pulse 70 01/25/25 14:10 Resp 16 01/25/25 14:10 BP 125/71 01/25/25 14:10 Pulse Ox 100 01/25/25 14:10 O2 Del Method Room Air 01/25/25 14:10 BMI result Body Mass Index 43.3 Const: General: cooperative, comfortable, alert and awake Nutritional Appearance: obese Orientation/consciousness: patient oriented x3 Resp: Effort & Inspection: normal respiratory effort, able to speak in complete sentences, no respiratory distress and no use of accessory muscles Cardio: Rate: regular rate GI: Palpation (GI): Soft to palpation and nontender Neuro: General: patient oriented x3, moves all extremities and CN's II-XI intact bilaterally Results Labs 01/26/25 05:29 01/25/25 08:15 Labs: Laboratory Results - last 24 hr 01/25/25 01/25/25 01/25/25 08:15 08:42 10:29 MCV 59.1 L MCH 16.2 L MCHC 27.4 L RDW 20.6 H Plt Count 343 MPV 9.3 L Immature Gran % (Auto) 0.3 Neut % (Auto) 50.4 Lymph % (Auto) 33.0 [place] % (Auto) 7.3 Eos % (Auto) 8.0 H Baso % (Auto) 1.0 Lymph # (Auto) 2.6 [place] # (Auto) 0.6 Eos # (Auto) 0.6 H Baso # (Auto) 0.1 Abs Immat Gran (auto) 0.02 Absolute Neuts (auto) 4.0 Absolute Nucleated RBC 0.000 Nucleated RBC % (auto) 0.0 Anion Gap 11 L Estim Creat Clear Calc 146.4 Estimated GFR > 60 Fasting Glucose 102 H Calcium 8.9 Magnesium 1.9 Iron 11 L TIBC 426 % Saturation 3 L Unsat Iron Binding 415 Total Bilirubin 0.6 AST 22 ALT 22 Alkaline Phosphatase 55 Total Protein 7.0 Albumin 4.3 Lipase 25 Beta HCG, Quant < 2 Urine Color Yellow Urine Appearance Clear Urine pH 6.5 Ur Specific [place] 1.020 Urine Protein Negative Urine Glucose (UA) Negative Urine Ketones Negative Urine Blood Negative Urine Nitrite Negative Ur Leukocyte Esterase Negative Blood Type A Positive Antibody Screen NEGATIVE Crossmatch See Detail 01/25/25 13:51 MCV 61.6 L MCH 17.1 L MCHC 27.7 L RDW 23.6 H Plt Count 364 MPV 9.6 Immature Gran % (Auto) 0.5 H Neut % (Auto) 54.1 Lymph % (Auto) 29.4 [place] % (Auto) 6.7 Eos % (Auto) 8.2 H Baso % (Auto) 1.1 Lymph # (Auto) 2.4 [place] # (Auto) 0.6 Eos # (Auto) 0.7 H Baso # (Auto) 0.1 Abs Immat Gran (auto) 0.04 H Absolute Neuts (auto) 4.4 Absolute Nucleated RBC 0.000 Nucleated RBC % (auto) 0.0 Anion Gap Estim Creat Clear Calc Estimated GFR Fasting Glucose Calcium Magnesium Iron TIBC % Saturation Unsat Iron Binding Total Bilirubin AST ALT Alkaline Phosphatase Total Protein Albumin Lipase Beta HCG, Quant Urine Color Urine Appearance Urine pH Ur Specific [place] Urine Protein Urine Glucose (UA) Urine Ketones Urine Blood Urine Nitrite Ur Leukocyte Esterase Blood Type Antibody Screen Crossmatch Imaging Radiologist's Impressions: Impressions Abdomen/Pelvis CT 01/25/25 09:43 IMPRESSION: 1. Suspect left-sided colitis with rectal involvement although there is underdistention of these regions complicating interpretation. Correlate for signs and symptoms of colitis. 2. Enlargement of the uterus, likely on the basis of the known underlying large fibroid. There are polycystic ovaries bilaterally. Electronically signed by: Angus Eisenberg MD 01/25/2025 10:23 AM EDT RP Assessment and Plan (1) Colitis: Status: Acute Plan This is a 39-year-old female with history of uterine fibroid, pernicious anemia no longer getting B12 who presents to the emergency department with 1 month history of diarrhea found to have severe anemia and colitis Acute colitis Inflammatory versus infectious no recent abx use GI studies, cdif pending check calprotectin, CRP continue IV levaquin and flagyl GI consult Microcytic anemia, probable subacute or chronic Asymptomatic h/o pernicious anemia but most recent labs available for comparison are from 2020, at that time H/H was normal iron studies, B12, folate pending s/p 1U rbc in ED with appropriate risk in H/H. no acute bleeding trend CBC dvt ppx - mechanical devices patient will likely require two midnight stay in the hospital for management of colitis and anemia requiring IV antibiotics and specialist evaluation and possible further blood transfusion Quality Stroke Does the patient have a stroke diagnosis?: No VTE Prior VTE?: No VTE Risk Level:: Medical - moderate - high VTE Device Contraindication: N/A - Device Ordered VTE Drug Contraindication: Treatment Not Indicated
[2025-01-25] MEDS: metroNIDAZOLE/NS 500 MG/100 ML PIGGYBACK 100 MG IV ×2 (15:18→23:45)
[2025-01-25] MEDS: 0.9 % Sodium Chloride Flush 3 ML SYRINGE IVFLUSH ×2 (16:14→23:50)
--- NOTE | 2025-01-25 16:14 | PC.NURSE ---
Addendum entered by Priscila Calhoun RN 01/25/25 16:16: Patient is a 39-year-old female with history of pernicious anemia who presents to the emergency department with diarrhea. Patient states she has had 1 month history of crampy abdominal pain followed by diarrhea. She has an average of approximately 3-5 episodes per day. The diarrhea is non-bloody. She does have a history of pernicious anemia but no longer takes B12 injections. She does have history of uterine fibroid and abnormal uterine bleeding. She was noted to be anemic. Her H/H was 6.4/23.4. She had CT scan of the abdomen and pelvis which showed left-sided colitis with rectal involvement. She received IV antibiotics, and one unit of blood with an improved H/H. Patient alert and oriented. Lungs clear bilat. Respirations even and non-labored. Abdomen large soft, with positive bowel sounds. Abdominal cramping has improved and patient states no diarrhea since arrival. Positive pedal pulses with no edema noted. Original Note: Medical History Hemiplegic migraine Carpal tunnel syndrome Anxiety Depression Vitamin B deficiency Sleep apnea
[2025-01-25 17:52] LABS: Ferritin 2 ng/mL (10-122)
[2025-01-25 19:26] LABS: Folate 4.9 ng/mL (> or = 4.0); Vitamin B12 397 pg/mL (200-900)
[2025-01-26] VITALS (9 sets, daily range): BP systolic 118–125; BP diastolic 56–72; PULSE 62–76; RESP 16–20; TEMP 36.1–37.1; O2SAT 98
[2025-01-26 06:11] LABS: Hematocrit 24.7 % (37.0-47.0); Mean Corpuscular HGB Conc 27.5 g/dl (31.0-35.0); Mean Corpuscular Hemoglobin 17.0 pg (27.0-33.0); NRBC Abs Auto 0.000 X10*3/uL (0.0-0.012); NRBC Pct Auto 0.0 /100WBC (0.0-0.2); Platelet Count 319 X10*3/uL (160-400); Red Blood Count 3.99 X10*6/uL (4.20-5.50); White Blood Count 6.2 X10*3/uL (4.8-10.8)
[2025-01-26 06:15] LABS: Mean Corpuscular Volume 61.9 fL (80.0-98.0)
[2025-01-26 06:22] LABS: Hemoglobin 6.8 g/dl (12.0-16.0)
--- NOTE | 2025-01-26 06:49 | PC.NURSE ---
Critical hematocrit of 6.8, order for 2 units RBC, charge nurse attempted to get the first unit of blood, blood bank unable to sign into system at this time and asked to come back in half hour.
[2025-01-26] MEDS: metroNIDAZOLE/NS 500 MG/100 ML PIGGYBACK 100 MG IV ×3 (07:59→23:14)
[2025-01-26] MEDS: 0.9 % Sodium Chloride Flush 3 ML SYRINGE IVFLUSH ×3 (08:01→23:15)
--- NOTE | 2025-01-26 11:21 | P.PNIM_ITS ---
Subjective Subjective Date of Service: 01/26/25 Interval History: no further diarrhea, minimal abd discomfort, hungry Review of Systems Review of Systems: Yes all other systems are reviewed and are negative Physical Exam 2 Vital Signs: Vital Signs: Last Vital Signs Temp 97.0 F 01/26/25 09:13 Pulse 73 01/26/25 09:13 Resp 18 01/26/25 09:13 BP 119/59 L 01/26/25 09:13 Pulse Ox 98 01/26/25 07:55 O2 Del Method Room Air 01/26/25 07:55 BMI result Body Mass Index 43.3 Gen: in no acute distress HEENT: sclera anicteric, moist mucus membranes Neck: supple Lungs: clear to auscultation bilaterally Heart: regular rate and rhythm, no murmurs Abd: soft, non-tender, non-distended, obese Ext: no edema Skin: warm/well-perfused Neuro: alert and oriented x3, no focal findings Psych: appropriate affect Objective Data Active Medications Acetaminophen (Acetaminophen 325 Mg Tablet) 650 mg PO Q6H PRN PRN Reason: Pain, Mild 1-3,fever,headache Calcium Carbonate (Calcium Carbonate 750 Mg Tab.Chew) 750 mg PO Q4H PRN PRN Reason: Heartburn Ceftriaxone Sodium (Ceftriaxone Sodium 1 Gm Vial) 1 gm IVPUSH Q24H [facility] Last Admin: 01/26/25 11:15 Dose: 1 gm Documented By: YASH Metronidazole (Flagyl) 500 mg in 100 mls @ 100 mls/hr IV Q8H [facility] Last Infusion: 01/26/25 09:19 Dose: Infused Documented By: YASH Magnesium Hydroxide (Milk Of Magnesia 30 Ml Oral.Susp) 30 ml PO DAILY PRN PRN Reason: Constipation Melatonin (Melatonin 3 Mg Tablet) 6 mg PO BEDTIME PRN PRN Reason: Insomnia Morphine Sulfate (Morphine Sulfate 4 Mg/Ml Cartridge) 2 mg IVPUSH Q4H PRN; Protocol PRN Reason: Pain, Severe (Pain Scale 7-10) Ondansetron HCl (Ondansetron Hcl 4 Mg/2 Ml Vial) 4 mg IVPUSH Q8H PRN PRN Reason: Nausea and Vomiting Polyethylene Glycol/Electrolytes (Peg 3350/Na Sulf,Bicarb,Cl/Kcl 4,000 Ml Soln.Recon) 4,000 ml PO ONCE ONE Stop: 01/26/25 13:01 Sodium Chloride (0.9 % Sodium Chloride Flush 3 Ml Syringe) 3 ml IVFLUSH QSHIFT [facility] Last Admin: 01/26/25 08:01 Dose: 3 ml Documented By: YASH Labs 01/26/25 05:29 01/25/25 08:15 Labs: Laboratory Results - last 24 hr 01/25/25 01/25/25 01/25/25 08:15 08:42 13:51 MCV 61.6 L MCH 17.1 L MCHC 27.7 L RDW 23.6 H Plt Count 364 MPV 9.6 Immature Gran % (Auto) 0.5 H Neut % (Auto) 54.1 Lymph % (Auto) 29.4 White % (Auto) 6.7 Eos % (Auto) 8.2 H Baso % (Auto) 1.1 Lymph # (Auto) 2.4 White # (Auto) 0.6 Eos # (Auto) 0.7 H Baso # (Auto) 0.1 Abs Immat Gran (auto) 0.04 H Absolute Neuts (auto) 4.4 Absolute Nucleated RBC 0.000 Nucleated RBC % (auto) 0.0 Hold Purple Top Ferritin 2 L C-Reactive Protein 0.24 Vitamin B12 Folate Blood Type A Positive Antibody Screen NEGATIVE Crossmatch See Detail 01/25/25 01/26/25 18:26 05:29 MCV 61.9 L MCH 17.0 L MCHC 27.5 L RDW 23.1 H Plt Count 319 MPV 9.8 Immature Gran % (Auto) Neut % (Auto) Lymph % (Auto) White % (Auto) Eos % (Auto) Baso % (Auto) Lymph # (Auto) White # (Auto) Eos # (Auto) Baso # (Auto) Abs Immat Gran (auto) Absolute Neuts (auto) Absolute Nucleated RBC 0.000 Nucleated RBC % (auto) 0.0 Hold Purple Top SEE NOTE Ferritin C-Reactive Protein Vitamin B12 397 Folate 4.9 Blood Type Antibody Screen Crossmatch Assessment and Plan (1) Hypochromic-microcytic anemia: Status: Acute Plan d2 for 39yo F presenting with 1mo diarrhea and painless rectal bleeding found to have colitis + severe anemia acute colitis - stool studies including calprotectin, GI panel, Cdiff pending; on ceftriaxone 9/6- metronidazole 01/25-; GI consult pending acute iron deficiency anemia due to GI blood loss - transfused 1u 01/25 with Hb 6.4->7.7 but Hb 6.8 today, will give another 2u hx pernicious anemia - B12 normal VTE ppx - SCDs dispo - eventual home In my clinical judgment, the patient requires continued inpatient hospitalization for the following reasons: IV ABX, GI consultation Total time managing care of this patient today: 35 minutes. Quality Stroke Does the patient have a stroke diagnosis?: No VTE Prior VTE?: No VTE Risk Level:: Medical - moderate - high VTE Device Contraindication: N/A - Device Ordered VTE Drug Contraindication: Treatment Not Indicated
--- NOTE | 2025-01-26 12:25 | CONS_ITS ---
DATE OF SERVICE: 01/26/2025 REFERRING PHYSICIAN: HYUN Pederson REASON FOR CONSULTATION: Colitis and anemia. HISTORY OF PRESENT ILLNESS: The patient is a pleasant 39-year-old woman who was admitted to the hospital after presenting to the emergency department with 1 month history of diarrhea with crampy abdominal pain. She describes no rectal bleeding and approximately 3-4 episodes on a daily basis. She has had some occasional hematochezia after wiping. She was evaluated in the emergency department with laboratory studies and imaging, which are reviewed. Her hematocrit on admission was 23.4, down from 39 in 2020. She reports outside labs done through her primary care provider's office a month ago were normal except for high LDL and borderline or prediabetic A1c. She has been transfused and is currently scheduled to receive a total of 3 units of packed red blood cells. Imaging studies were obtained, which are reviewed. CT scanning is interpreted as showing left-sided colitis with rectal involvement. She does have a history of uterine fibroids, but denies significant menometrorrhagia. She has never undergone endoscopy or colonoscopy. Iron studies are consistent with iron deficiency. PAST MEDICAL HISTORY: 1. Carpal tunnel syndrome, status post repair. 2. Anxiety/depression. 3. Vitamin B deficiency. 4. Sleep apnea. 5. Migraine headaches. CURRENT MEDICATIONS: Her current medication list is reviewed in the chart. ALLERGIES: THERE ARE NONE REPORTED. FAMILY HISTORY: This is negative for primary family relatives with Crohn disease or ulcerative colitis. SOCIAL HISTORY: She does use marijuana for symptoms of anxiety and depression. PAST SURGICAL HISTORY: Includes carpal tunnel repair and D and C. REVIEW OF SYSTEMS: SKIN: No pruritus. HEENT: Negative. CARDIOPULMONARY: No shortness of breath or chest pain. GASTROINTESTINAL: As above. She denies any recent travel, suspect ingestions, antibiotic usage or contact with ill patients. GENITOURINARY: Negative. NEUROPSYCHIATRIC: Negative. PHYSICAL EXAMINATION: GENERAL: Shows a pleasant female, in no acute distress. SKIN: Anicteric. HEENT: Shows no scleral icterus. NECK: Without lymphadenopathy or thyromegaly. LUNGS: Clear. HEART: Shows a regular rate and rhythm. S1, S2. No murmur. ABDOMEN: Soft without focal masses or tenderness. Bowel sounds are present. No organomegaly is noted. EXTREMITIES: Without edema. LABORATORY DATA: Reviewed. Stool studies have been ordered, but the patient has not had any diarrhea since admission. IMPRESSION: 1. Colitis. 2. Iron-deficiency anemia. PLAN: I discussed with her that I would recommend evaluation after her transfusion with colonoscopy and endoscopy because of her iron deficiency anemia and abnormal CT scan. I have discussed risks and benefits of the procedure today. She understands these and agrees to proceed. This will be scheduled for Tuesday. Thank you for asking me to see her and I will follow her in the hospital with you. MD VIRAJ Cano/SHANNA / [phone]
--- NOTE | 2025-01-26 13:20 | MHC.CM.PN ---
PT REPORTS SHE LIVES WITH HER S/O AND IS INDEPENDENT WITH CARE SHE HAS A CPAP FOR DME AND NO SERVICES DECLINES A HCP PCP AT [facility] DCP: HOME VIA SELF-TRANSPORT
[2025-01-26 20:13] LABS: OBS Int Ctl Valid YES; OBS1 NEGATIVE (NEGATIVE)
[2025-01-26 21:16] LABS: CDiff Gene PCR POSITIVE (Negative)
[2025-01-26 21:57] LABS: CDIFF Internal ctrl Dots and bkg OK (V); CDiff Toxin Negative (Negative)
[2025-01-27 03:47] VITALS: BP 124/56; PULSE 67; RESP 18; TEMP 36.6; O2SAT 97
[2025-01-27] MEDS: metroNIDAZOLE/NS 500 MG/100 ML PIGGYBACK 100 MG IV (06:15)
[2025-01-27 06:50] LABS: Hematocrit 30.9 % (37.0-47.0); Hemoglobin 9.3 g/dl (12.0-16.0); Mean Corpuscular HGB Conc 30.1 g/dl (31.0-35.0); Mean Corpuscular Hemoglobin 19.6 pg (27.0-33.0); Mean Corpuscular Volume 65.1 fL (80.0-98.0); NRBC Abs Auto 0.000 X10*3/uL (0.0-0.012); NRBC Pct Auto 0.0 /100WBC (0.0-0.2); Platelet Count 317 X10*3/uL (160-400); Red Blood Count 4.75 X10*6/uL (4.20-5.50); White Blood Count 7.5 X10*3/uL (4.8-10.8)
[2025-01-27 07:09] LABS: Anion Gap 13 (12-20); Blood Urea Nitrogen 10 mg/dL (9-16); Calcium 9.2 mg/dL (8.4-10.2); Carbon Dioxide 24 mmol/L (22-29); Chloride 109 mmol/L (96-108); Creatinine Clr Calc Pharmacy 136.9; Estimated Glomerular Filt Rate > 60; Potassium 4.0 mmol/L (3.3-5.1); Sodium 142 mmol/L (135-145)
[2025-01-27 07:55] VITALS: BP 120/72; PULSE 68; RESP 18; TEMP 36.7; O2SAT 100
[2025-01-27] MEDS: 0.9 % Sodium Chloride Flush 3 ML SYRINGE IVFLUSH ×2 (08:59→16:50)
--- NOTE | 2025-01-27 09:55 | P.PNGI_ITS ---
Subjective Subjective Date of Service: 01/27/25 Interval History: feels better tolerated diet yesterday, on clears with bowel prep starting at 1300 Critical Care Time (minutes): 0 Physical Exam 2 Vital Signs: Vital Signs: Last Vital Signs Temp 98.0 F 01/27/25 07:55 Pulse 68 01/27/25 07:55 Resp 18 01/27/25 07:55 BP 120/72 01/27/25 07:55 Pulse Ox 100 01/27/25 07:55 O2 Del Method Room Air 01/27/25 07:55 BMI result Body Mass Index 43.3 GI: Other: abdomen is soft and nontender Objective Data Labs 01/27/25 06:17 01/27/25 06:17 Labs: Laboratory Results - last 24 hr 01/25/25 01/26/25 01/27/25 08:42 19:32 06:17 WBC 7.5 RBC 4.75 Hgb 9.3 L D Hct 30.9 L D MCV 65.1 L MCH 19.6 L MCHC 30.1 L RDW 26.9 H Plt Count 317 MPV 9.7 Absolute Nucleated RBC 0.000 Nucleated RBC % (auto) 0.0 Sodium 142 Potassium 4.0 Chloride 109 H Carbon Dioxide 24 Anion Gap 13 BUN 10 Creatinine 0.78 Estim Creat Clear Calc 136.9 Estimated GFR > 60 Random Glucose 119 H Calcium 9.2 Stool Occult Blood NEGATIVE C. difficile Tox B Gene POSITIVE A* C. difficile Toxin A&B Negative C. difficile Interpret SEE NOTE Blood Type A Positive Antibody Screen NEGATIVE Crossmatch See Detail Procedures Date of Service Date of Service: 01/27/25 Progress Note: A&P Assessment and plan (1) Hypochromic-microcytic anemia: Status: Acute Assessment and Plan: BABAK, colitis on CT c diff results reviewed, colonization per lab no risk factors for cdiff GI panel pending EGD colonoscopy tomorrow. Time Spent With Patient Time: Total time managing care of this patient today ____ minutes. Quality Stroke Does the patient have a stroke diagnosis?: No VTE Prior VTE?: No VTE Risk Level:: Medical - moderate - high VTE Device Contraindication: N/A - Device Ordered VTE Drug Contraindication: Treatment Not Indicated
[2025-01-27 10:29] LABS: E. coli EAEC Not Detected (Not Detect.); E. coli EPEC Not Detected (Not Detect.); E. coli ETEC Not Detected (Not Detect.); E. coli STEC Not Detected (Not Detect.); Shigella sp./EIEC Not Detected (Not Detect.)
--- NOTE | 2025-01-27 10:49 | HO.PM.IMPN ---
Subjective Subjective Date of Service: 01/27/25 Interval History: no further rectal bleeding; no abd pain Review of Systems Review of Systems: Yes all other systems are reviewed and are negative Physical Exam Vital Signs: Vital Signs: Last Vital Signs Temp 98.0 F 01/27/25 07:55 Pulse 68 01/27/25 07:55 Resp 18 01/27/25 07:55 BP 120/72 01/27/25 07:55 Pulse Ox 100 01/27/25 07:55 O2 Del Method Room Air 01/27/25 07:55 BMI result Body Mass Index 43.3 Gen: in no acute distress HEENT: sclera anicteric, moist mucus membranes Neck: supple Lungs: clear to auscultation bilaterally Heart: regular rate and rhythm, no murmurs Abd: soft, non-tender, non-distended, obese Ext: no edema Skin: warm/well-perfused Neuro: alert and oriented x3, no focal findings Psych: appropriate affect Objective Data Active Medications Acetaminophen (Acetaminophen 325 Mg Tablet) 650 mg PO Q6H PRN PRN Reason: Pain, Mild 1-3,fever,headache Calcium Carbonate (Calcium Carbonate 750 Mg Tab.Chew) 750 mg PO Q4H PRN PRN Reason: Heartburn Ceftriaxone Sodium (Ceftriaxone Sodium 1 Gm Vial) 1 gm IVPUSH Q24H [facility] Last Admin: 01/27/25 08:59 Dose: 1 gm Documented By: LUKE Metronidazole (Flagyl) 500 mg in 100 mls @ 100 mls/hr IV Q8H [facility] Last Infusion: 01/27/25 07:19 Dose: Infused Documented By: LUKE Magnesium Hydroxide (Milk Of Magnesia 30 Ml Oral.Susp) 30 ml PO DAILY PRN PRN Reason: Constipation Melatonin (Melatonin 3 Mg Tablet) 6 mg PO BEDTIME PRN PRN Reason: Insomnia Morphine Sulfate (Morphine Sulfate 4 Mg/Ml Cartridge) 2 mg IVPUSH Q4H PRN; Protocol PRN Reason: Pain, Severe (Pain Scale 7-10) Ondansetron HCl (Ondansetron Hcl 4 Mg/2 Ml Vial) 4 mg IVPUSH Q8H PRN PRN Reason: Nausea and Vomiting Polyethylene Glycol/Electrolytes (Peg 3350/Na Sulf,Bicarb,Cl/Kcl 4,000 Ml Soln.Recon) 4,000 ml PO ONCE@1400 [facility] Stop: 01/27/25 14:01 Sodium Chloride (0.9 % Sodium Chloride Flush 3 Ml Syringe) 3 ml IVFLUSH QSHIFT [facility] Last Admin: 01/27/25 08:59 Dose: 3 ml Documented By: LUKE Labs 01/27/25 06:17 01/27/25 06:17 Labs: Laboratory Results - last 24 hr 01/25/25 01/26/25 01/27/25 08:42 19:32 06:17 MCV 65.1 L MCH 19.6 L MCHC 30.1 L RDW 26.9 H Plt Count 317 MPV 9.7 Absolute Nucleated RBC 0.000 Nucleated RBC % (auto) 0.0 Anion Gap 13 Estim Creat Clear Calc 136.9 Estimated GFR > 60 Random Glucose 119 H Calcium 9.2 Stool Occult Blood NEGATIVE Stl C. cayetanensis PCR Not Detected Stool Rotavirus A PCR Not Detected Stl Adenov F 40/41 PCR Not Detected Stool Astrovirus (PCR) Not Detected Stool Campylobacter PCR Not Detected Stool Cryptosporidium PCR Not Detected Stl Sh Tox Pr E STEC PCR Not Detected Stool E coli O157 PCR Not applicable Stl Enterotoxigenic E PCR Not Detected Stool EPEC (PCR) Not Detected Stool EAEC (PCR) Not Detected Stl E. histolytica PCR Not Detected Stool Giardia Lamblia PCR Not Detected Stl P. shigelloides PCR Not Detected Stool Salmonella PCR Not Detected Stool Sapovirus (PCR) Not Detected Stl Shigella/EIEC PCR Not Detected St Y.enterocolitica PCR Not Detected Stool Vibrio (PCR) Not Detected Stl Vibrio cholerae PCR Not Detected Stl Norovirus GI/GII PCR Not Detected C. difficile Tox B Gene POSITIVE A* C. difficile Toxin A&B Negative C. difficile Interpret SEE NOTE Blood Type A Positive Antibody Screen NEGATIVE Crossmatch See Detail Assessment and Plan (1) Hypochromic-microcytic anemia: Status: Acute Plan d3 for 39yo F presenting with 1mo diarrhea and painless rectal bleeding found to have colitis + severe anemia acute colitis C. difficile - reported as colonization but given symptoms and CT findings, will treat with PO vancomycin x10d - plan EGD/C-scope tomorrow [Dr Dinero] acute iron deficiency anemia due to GI blood loss - transfused total 3u pRBCs with appropriate increase in H+H, scope tomorrow hx pernicious anemia - B12 normal VTE ppx - SCDs dispo - eventual home In my clinical judgment, the patient requires continued inpatient hospitalization for the following reasons: EGD/C-scope Total time managing care of this patient today: 35 minutes. Quality Stroke Does the patient have a stroke diagnosis?: No VTE Prior VTE?: No VTE Risk Level:: Medical - moderate - high VTE Device Contraindication: N/A - Device Ordered VTE Drug Contraindication: Treatment Not Indicated
[2025-01-27] MEDS: PEG 3350/Na Sulf,Bicarb,Cl/KCL 4,000 ML SOLN.RECON 4000 ML PO (13:28)
[2025-01-27 15:31] VITALS: BP 128/71; PULSE 72; RESP 18; TEMP 36.4; O2SAT 100
[2025-01-27 19:32] VITALS: BP 132/73; PULSE 77; RESP 18; TEMP 36.3; O2SAT 100
[2025-01-28] MEDS: 0.9 % Sodium Chloride Flush 3 ML SYRINGE IVFLUSH ×2 (00:08→23:04)
[2025-01-28 04:00] VITALS: BP 104/56; PULSE 52; RESP 18; TEMP 36.1; O2SAT 98
[2025-01-28 07:43] VITALS: BP 114/59; PULSE 60; RESP 18; TEMP 36.7; O2SAT 96
--- NOTE | 2025-01-28 12:07 | MHC.CM.PN ---
Patient not medically cleared for dc at this time. DP remains home self care. CM will continue to follow.
[2025-01-28 14:33] VITALS: BP 131/76; PULSE 66; RESP 12; TEMP 36.2; O2SAT 100
[2025-01-28] MEDS: Lactated Ringers 1,000 ML 80 ML IVCONT (14:39)
--- NOTE | 2025-01-28 16:55 | HO.PM.IMPN ---
Subjective Subjective Date of Service: 01/28/25 Interval History: no further bleeding Review of Systems Review of Systems: Yes all other systems are reviewed and are negative Physical Exam Vital Signs: Vital Signs: Last Vital Signs Temp 97.2 F 01/28/25 14:33 Pulse 66 01/28/25 14:33 Resp 12 01/28/25 14:33 BP 131/76 01/28/25 14:33 Pulse Ox 100 01/28/25 14:33 O2 Del Method Room Air 01/28/25 14:33 BMI result Body Mass Index 43.3 Gen: in no acute distress HEENT: sclera anicteric, moist mucus membranes Neck: supple Lungs: clear to auscultation bilaterally Heart: regular rate and rhythm, no murmurs Abd: soft, non-tender, non-distended, obese Ext: no edema Skin: warm/well-perfused Neuro: alert and oriented x3, no focal findings Psych: appropriate affect Objective Data Active Medications Acetaminophen (Acetaminophen 325 Mg Tablet) 650 mg PO Q6H PRN PRN Reason: Pain, Mild 1-3,fever,headache Calcium Carbonate (Calcium Carbonate 750 Mg Tab.Chew) 750 mg PO Q4H PRN PRN Reason: Heartburn Lactated Ringer's (Lr) 1,000 mls @ 80 mls/hr IVCONT .[id number] [facility] Last Admin: 01/28/25 14:39 Dose: 80 mls/hr Documented By: SOHAIL Magnesium Hydroxide (Milk Of Magnesia 30 Ml Oral.Susp) 30 ml PO DAILY PRN PRN Reason: Constipation Melatonin (Melatonin 3 Mg Tablet) 6 mg PO BEDTIME PRN PRN Reason: Insomnia Morphine Sulfate (Morphine Sulfate 4 Mg/Ml Cartridge) 2 mg IVPUSH Q4H PRN; Protocol PRN Reason: Pain, Severe (Pain Scale 7-10) Ondansetron HCl (Ondansetron Hcl 4 Mg/2 Ml Vial) 4 mg IVPUSH Q8H PRN PRN Reason: Nausea and Vomiting Sodium Chloride (0.9 % Sodium Chloride Flush 3 Ml Syringe) 3 ml IVFLUSH QSHIFT [facility] Last Admin: 01/28/25 08:55 Dose: Not Given Documented By: CHAYITO Non-Admin Reason: Previously Administered Vancomycin HCl (Vancomycin Hcl 125 Mg Capsule) 125 mg PO Q6H [facility] Last Admin: 01/28/25 11:07 Dose: 125 mg Documented By: CHAYITO Labs 01/27/25 06:17 01/27/25 06:17 Labs: Laboratory Results - last 24 hr 01/25/25 08:15 Smear Path Review SEE NOTE Assessment and Plan (1) Hypochromic-microcytic anemia: Status: Acute Plan d4 for 39yo F presenting with 1mo diarrhea and painless rectal bleeding found to have colitis + severe anemia acute colitis C. difficile - reported as colonization but given symptoms and CT findings, will treat with PO vancomycin x10d - plan EGD/C-scope today with Dr Dinero acute iron deficiency anemia due to GI blood loss - transfused total 3u pRBCs with appropriate increase in H+H, scope todya hx pernicious anemia - B12 normal VTE ppx - SCDs dispo - eventual home In my clinical judgment, the patient requires continued inpatient hospitalization for the following reasons: EGD/C-scope Total time managing care of this patient today: 35 minutes. Quality Stroke Does the patient have a stroke diagnosis?: No VTE Prior VTE?: No VTE Risk Level:: Medical - moderate - high VTE Device Contraindication: N/A - Device Ordered VTE Drug Contraindication: Treatment Not Indicated
--- NOTE | 2025-01-28 17:49 | PM.EVENT ---
Event Note Date of Service: 01/28/25 Event Note: GI-Her procedures had to be postponed until tomorrow, 01/29, due to lack of scheduling availability in the OR. The cases would not have been done until approximately 9PM this evening at the earliest, from what was explained to me. I did review this with her and she obviously was appropriately not happy about it. I shall keep her on clear liquids tonight and then make her NPO after MN. I did encourage her to stay in the hospital as she already did the prep and it's obviously important to diagnose the cause of her anemia and diarrhea. She was agreeable at this time. Thanks Time Spent With Patient Time: Total time managing care of this patient today ____ minutes.
[2025-01-28 17:57] VITALS: BP 135/89; PULSE 83; RESP 18; TEMP 36.3; O2SAT 99
[2025-01-28 19:57] VITALS: BP 121/74; PULSE 84; RESP 18; TEMP 36.6; O2SAT 97
[2025-01-29 03:16] VITALS: BP 98/52; PULSE 66; RESP 18; TEMP 36.1; O2SAT 98
[2025-01-29 06:38] LABS: MANUAL DIFF FLAG NO
[2025-01-29 06:49] LABS: Hematocrit 33.6 % (37.0-47.0); Hemoglobin 9.8 g/dl (12.0-16.0); Imm Gran Abs Auto 0.03 X10*3/uL (0.00-0.03); Imm Gran Pct Auto 0.4 % (0.0-0.4); Lymphocytes Absolute Auto 2.8 X10*3/uL (1.2-4.9); Mean Corpuscular HGB Conc 29.2 g/dl (31.0-35.0); Mean Corpuscular Hemoglobin 19.3 pg (27.0-33.0); Mean Corpuscular Volume 66.3 fL (80.0-98.0); NRBC Abs Auto 0.000 X10*3/uL (0.0-0.012); NRBC Pct Auto 0.0 /100WBC (0.0-0.2); Platelet Count 321 X10*3/uL (160-400); Red Blood Count 5.07 X10*6/uL (4.20-5.50); White Blood Count 7.6 X10*3/uL (4.8-10.8)
[2025-01-29 07:02] LABS: Anion Gap 12 (12-20); Blood Urea Nitrogen 6 mg/dL (9-16); Calcium 9.0 mg/dL (8.4-10.2); Carbon Dioxide 24 mmol/L (22-29); Chloride 109 mmol/L (96-108); Creatinine Clr Calc Pharmacy 154.8; Estimated Glomerular Filt Rate > 60; Potassium 4.1 mmol/L (3.3-5.1); Sodium 141 mmol/L (135-145)
[2025-01-29 07:40] VITALS: BP 113/67; PULSE 58; RESP 18; TEMP 36.6; O2SAT 97
[2025-01-29 10:06] VITALS: BP 132/67; PULSE 71; RESP 16; TEMP 36.3; O2SAT 96
--- NOTE | 2025-01-29 10:11 | P.CONAN_ITS ---
Documented by User: Jennifer Shepard NP 01/28/25 09:21 HPI - Anesthesia Eval Consult details Narrative: 39 yr old female for upper endoscopy, colonoscopy No recent illness. No CP, had some mild SOB that resolved after blood transfusion (Hgb was 6.4 on admission) GLENN: on CPAP Morbid obesity: BMI 43 PMFSH Active Problems Active Problems: All Active Problems (Updated 01/25/25 @ 14:00 by HYUN Pugh) Colitis (Acute) Hypochromic-microcytic anemia (Acute) Abdominal pain (Acute) Painless rectal bleeding (Acute) Myoma (Acute) Headache, hemiplegic migraine (Acute) Vitamin B deficiency (Acute) Sleep apnea (Acute) Depression (Acute) Anxiety (Acute) Past Medical History Medical History Hemiplegic migraine Carpal tunnel syndrome Anxiety Depression Vitamin B deficiency Sleep apnea Family History Family history of problems with anesthesia: No Surgical History Surgical History Hx of dilation and curettage History of Problems with Anesthesia: No Social History Social History Household Members: Significant Other and Family Housing: Apartment Are you a primary healthcare analyst to a significant other at home: No Do you presently have visiting nurse or other home services: No Alcohol intake: never Patient Tobacco Use Status: Current everyday Tobacco user Tobacco use type: Smokeless Tobacco Smoked in Last 30 Days: No Use of substances other than those prescribed or required for medical reasons: Yes Substance Use Type: Marijuana Substance Use Frequency: Daily Currently Displaying Signs/Symptoms of Drug Intoxication Withdrawal: No Have you been hit, kicked, punched, or otherwise hurt by someone within the past year? If so, by whom?: No Do you feel safe in your current relationship?: Yes Is there a partner from a previous relationship who is making you feel unsafe now?: No Are you made to feel afraid or neglected: No Are you DNR?: No Advance Directives: No Advance Directives Information Provided: Yes Do you have a plan to hurt others: No Plan Recently lost weight without trying: No Eating poorly because of decreased appetite: No Nutrition Risks: No Nutritional Risk Patient : No FDLMP: 01/05/2025 : No Poor oral hygiene: No service: No Meds Allergies Allergy/AdvReac Type Severity Reaction Status Date / Time No Known Allergies Allergy Verified 01/25/25 07:43 Active Medications: Current Medications Acetaminophen (Acetaminophen 325 Mg Tablet) 650 mg PO Q6H PRN PRN Reason: Pain, Mild 1-3,fever,headache Calcium Carbonate (Calcium Carbonate 750 Mg Tab.Chew) 750 mg PO Q4H PRN PRN Reason: Heartburn Magnesium Hydroxide (Milk Of Magnesia 30 Ml Oral.Susp) 30 ml PO DAILY PRN PRN Reason: Constipation Melatonin (Melatonin 3 Mg Tablet) 6 mg PO BEDTIME PRN PRN Reason: Insomnia Morphine Sulfate (Morphine Sulfate 4 Mg/Ml Cartridge) 2 mg IVPUSH Q4H PRN; Protocol PRN Reason: Pain, Severe (Pain Scale 7-10) Ondansetron HCl (Ondansetron Hcl 4 Mg/2 Ml Vial) 4 mg IVPUSH Q8H PRN PRN Reason: Nausea and Vomiting Sodium Chloride (0.9 % Sodium Chloride Flush 3 Ml Syringe) [facility] Admin: 01/28/25 08:55 Dose: Not Given Vancomycin HCl (Vancomycin Hcl 125 Mg Capsule) 125 mg PO Q6H [facility] Last Admin: 01/28/25 05:46 Dose: 125 mg Home Medications ?Medication ?Instructions ?Recorded ?Confirmed ?Last Taken ?Type No Known Home Meds 01/25/25 01/25/25 Un known History Exam Height,Weight and Vital Signs: Height 5 ft 7.5 in Weight 127.2 kg Last Vital Signs Temp 98.1 F 01/28/25 07:43 Pulse 60 01/28/25 07:43 Resp 18 01/28/25 07:43 BP 114/59 L 01/28/25 07:43 Pulse Ox 96 01/28/25 07:43 O2 Del Method CPAP 01/28/25 07:43 Pertinent Lab Results Pertinent Lab Results: Laboratory Tests 01/25/25 01/25/25 01/25/25 08:15 08:42 10:29 WBC 8.0 RBC 3.96 L Hgb 6.4 L* Hct 23.4 L MCV 59.1 L MCH 16.2 L MCHC 27.4 L RDW 20.6 H Plt Count 343 MPV 9.3 L Immature Gran % (Auto) 0.3 Neut % (Auto) 50.4 Lymph % (Auto) 33.0 [place] % (Auto) 7.3 Eos % (Auto) 8.0 H Baso % (Auto) 1.0 Lymph # (Auto) 2.6 Hamilton # (Auto) 0.6 Eos # (Auto) 0.6 H Baso # (Auto) 0.1 Abs Immat Gran (auto) 0.02 Absolute Neuts (auto) 4.0 Absolute Nucleated RBC 0.000 Nucleated RBC % (auto) 0.0 Hold Purple Top Sodium 140 Potassium 3.5 Chloride 108 Carbon Dioxide 25 Anion Gap 11 L BUN 11 Creatinine 0.73 Estim Creat Clear Calc 146.4 Estimated GFR > 60 Random Glucose Fasting Glucose 102 H Calcium 8.9 Magnesium 1.9 Iron 11 L TIBC 426 % Saturation 3 L Unsat Iron Binding 415 Ferritin 2 L Total Bilirubin 0.6 AST 22 ALT 22 Alkaline Phosphatase 55 C-Reactive Protein 0.24 Total Protein 7.0 Albumin 4.3 Lipase 25 Vitamin B12 Folate Beta HCG, Quant < 2 Urine Color Yellow Urine Appearance Clear Urine pH 6.5 Ur Specific [place] 1.020 Urine Protein Negative Urine Glucose (UA) Negative Urine Ketones Negative Urine Blood Negative Urine Nitrite Negative Ur Leukocyte Esterase Negative Stool Occult Blood Stl C. cayetanensis PCR Stool Rotavirus A PCR Stl Adenov F 40/41 PCR Stool Astrovirus (PCR) Stool Campylobacter PCR Stool Cryptosporidium PCR Stl Sh Tox Pr E STEC PCR Stool E coli O157 PCR Stl Enterotoxigenic E PCR Stool EPEC (PCR) Stool EAEC (PCR) Stl E. histolytica PCR Stool Giardia Lamblia PCR Stl P. shigelloides PCR Stool Salmonella PCR Stool Sapovirus (PCR) Stl Shigella/EIEC PCR St Y.enterocolitica PCR Stool Vibrio (PCR) Stl Vibrio cholerae PCR Stl Norovirus GI/GII PCR C. difficile Tox B Gene C. difficile Toxin A&B C. difficile Interpret Blood Type A Positive Antibody Screen NEGATIVE Crossmatch See Detail 01/25/25 01/25/25 01/26/25 13:51 18:26 05:29 WBC 8.2 6.2 RBC 4.51 3.99 L Hgb 7.7 L D 6.8 L* Hct 27.8 L 24.7 L MCV 61.6 L 61.9 L MCH 17.1 L 17.0 L MCHC 27.7 L 27.5 L RDW 23.6 H 23.1 H Plt Count 364 319 MPV 9.6 9.8 Immature Gran % (Auto) 0.5 H Neut % (Auto) 54.1 Lymph % (Auto) 29.4 Hamilton % (Auto) 6.7 Eos % (Auto) 8.2 H Baso % (Auto) 1.1 Lymph # (Auto) 2.4 [place] # (Auto) 0.6 Eos # (Auto) 0.7 H Baso # (Auto) 0.1 Abs Immat Gran (auto) 0.04 H Absolute Neuts (auto) 4.4 Absolute Nucleated RBC 0.000 0.000 Nucleated RBC % (auto) 0.0 0.0 Hold Purple Top SEE NOTE Sodium Potassium Chloride Carbon Dioxide Anion Gap BUN Creatinine Estim Creat Clear Calc Estimated GFR Random Glucose Fasting Glucose Calcium Magnesium Iron TIBC % Saturation Unsat Iron Binding Ferritin Total Bilirubin AST ALT Alkaline Phosphatase C-Reactive Protein Total Protein Albumin Lipase Vitamin B12 397 Folate 4.9 Beta HCG, Quant Urine Color Urine Appearance Urine pH Ur Specific [place] Urine Protein Urine Glucose (UA) Urine Ketones Urine Blood Urine Nitrite Ur Leukocyte Esterase Stool Occult Blood Stl C. cayetanensis PCR Stool Rotavirus A PCR Stl Adenov F 40/41 PCR Stool Astrovirus (PCR) Stool Campylobacter PCR Stool Cryptosporidium PCR Stl Sh Tox Pr E STEC PCR Stool E coli O157 PCR Stl Enterotoxigenic E PCR Stool EPEC (PCR) Stool EAEC (PCR) Stl E. histolytica PCR Stool Giardia Lamblia PCR Stl P. shigelloides PCR Stool Salmonella PCR Stool Sapovirus (PCR) Stl Shigella/EIEC PCR St Y.enterocolitica PCR Stool Vibrio (PCR) Stl Vibrio cholerae PCR Stl Norovirus GI/GII PCR C. difficile Tox B Gene C. difficile Toxin A&B C. difficile Interpret Blood Type Antibody Screen Crossmatch 01/26/25 01/27/25 19:32 06:17 WBC 7.5 RBC 4.75 Hgb 9.3 L D Hct 30.9 L D MCV 65.1 L MCH 19.6 L MCHC 30.1 L RDW 26.9 H Plt Count 317 MPV 9.7 Immature Gran % (Auto) Neut % (Auto) Lymph % (Auto) [place] % (Auto) Eos % (Auto) Baso % (Auto) Lymph # (Auto) [place] # (Auto) Eos # (Auto) Baso # (Auto) Abs Immat Gran (auto) Absolute Neuts (auto) Absolute Nucleated RBC 0.000 Nucleated RBC % (auto) 0.0 Hold Purple Top Sodium 142 Potassium 4.0 Chloride 109 H Carbon Dioxide 24 Anion Gap 13 BUN 10 Creatinine 0.78 Estim Creat Clear Calc 136.9 Estimated GFR > 60 Random Glucose 119 H Fasting Glucose Calcium 9.2 Magnesium Iron TIBC % Saturation Unsat Iron Binding Ferritin Total Bilirubin AST ALT Alkaline Phosphatase C-Reactive Protein Total Protein Albumin Lipase Vitamin B12 Folate Beta HCG, Quant Urine Color Urine Appearance Urine pH Ur Specific [place] Urine Protein Urine Glucose (UA) Urine Ketones Urine Blood Urine Nitrite Ur Leukocyte Esterase Stool Occult Blood NEGATIVE Stl C. cayetanensis PCR Not Detected Stool Rotavirus A PCR Not Detected Stl Adenov F 40/41 PCR Not Detected Stool Astrovirus (PCR) Not Detected Stool Campylobacter PCR Not Detected Stool Cryptosporidium PCR Not Detected Stl Sh Tox Pr E STEC PCR Not Detected Stool E coli O157 PCR Not applicable Stl Enterotoxigenic E PCR Not Detected Stool EPEC (PCR) Not Detected Stool EAEC (PCR) Not Detected Stl E. histolytica PCR Not Detected Stool Giardia Lamblia PCR Not Detected Stl P. shigelloides PCR Not Detected Stool Salmonella PCR Not Detected Stool Sapovirus (PCR) Not Detected Stl Shigella/EIEC PCR Not Detected St Y.enterocolitica PCR Not Detected Stool Vibrio (PCR) Not Detected Stl Vibrio cholerae PCR Not Detected Stl Norovirus GI/GII PCR Not Detected C. difficile Tox B Gene POSITIVE A* C. difficile Toxin A&B Negative C. difficile Interpret SEE NOTE Blood Type Antibody Screen Crossmatch Airway Mallampati Class: II TM Dist: >3cm Neck ROM: Full Loose/Missing/Broken Teeth: Yes and Upper (chip left 10 or 11) Heart: RRR Lungs: CTAB Assessment and Plan Final Anesthetic Review Family History of Problems with Anesthesia: No History of Problems with Anesthesia: No Documented by User: Lisette Mattson DO 01/29/25 10:12 PMFSH Past Medical History Medical History Hemiplegic migraine Carpal tunnel syndrome Anxiety Depression Vitamin B deficiency Sleep apnea Family History Family history of problems with anesthesia: No Surgical History Surgical History Hx of dilation and curettage History of Problems with Anesthesia: No Social History Social History Household Members: Significant Other and Family Housing: Apartment Are you a primary healthcare analyst to a significant other at home: No Do you presently have visiting nurse or other home services: No Alcohol intake: never Patient Tobacco Use Status: Current everyday Tobacco user Tobacco use type: Smokeless Tobacco Smoked in Last 30 Days: No Use of substances other than those prescribed or required for medical reasons: Yes Substance Use Type: Marijuana Substance Use Frequency: Daily Currently Displaying Signs/Symptoms of Drug Intoxication Withdrawal: No Have you been hit, kicked, punched, or otherwise hurt by someone within the past year? If so, by whom?: No Do you feel safe in your current relationship?: Yes Is there a partner from a previous relationship who is making you feel unsafe now?: No Are you made to feel afraid or neglected: No Are you DNR?: No Advance Directives: No Advance Directives Information Provided: Yes Do you have a plan to hurt others: No Plan Recently lost weight without trying: No Eating poorly because of decreased appetite: No Nutrition Risks: No Nutritional Risk Patient : No FDLMP: 01/05/2025 : No Poor oral hygiene: No service: No Meds Allergies Allergy/AdvReac Type Severity Reaction Status Date / Time No Known Allergies Allergy Verified 01/25/25 07:43 Home Medications ?Medication ?Instructions ?Recorded ?Confirmed ?Last Taken ?Type No Known Home Meds 01/25/25 01/25/25 Un known History Exam Exam Date and Time: 01/29/25 1010 Height,Weight and Vital Signs: Height 5 ft 7.5 in Weight 127.2 kg Last Vital Signs Temp 98.1 F 01/28/25 07:43 Pulse 60 01/28/25 07:43 Resp 18 01/28/25 07:43 BP 114/59 L 01/28/25 07:43 Pulse Ox 96 01/28/25 07:43 O2 Del Method CPAP 01/28/25 07:43 Vital Signs Temperature 98.3 F 01/25/25 07:42 Pulse Rate 78 01/25/25 07:42 Respiratory Rate 18 01/25/25 07:42 Blood Pressure 151/70 H 01/25/25 07:42 Pulse Oximetry 99 01/25/25 07:42 Oxygen Delivery Method Room Air 01/25/25 07:42 Temperature 97.4 F 01/29/25 10:06 Pulse Rate 71 01/29/25 10:06 Respiratory Rate 16 01/29/25 10:06 Blood Pressure 132/67 01/29/25 10:06 Pulse Oximetry 96 01/29/25 10:06 Oxygen Delivery Method Room Air 01/29/25 10:06 Airway Mallampati Class: II TM Dist: >3cm Neck ROM: Full Loose/Missing/Broken Teeth: Yes (poor dentition - several broken teeth) Heart: S1S2 Assessment and Plan Assessment Anesthesia Assessment: Anesthesia Plan Discussed and Chart Reviewed Final Anesthetic Review Family History of Problems with Anesthesia: No History of Problems with Anesthesia: No NPO: Yes ASA Class: III Final Preanesthetic Review: No Changes in Pt Med Stat, Meds/Allgs Chart Reviewed, Consent Obtained/Reviewed and Anes Risks/Benef Reviewed Patient Risk: Intermediate Procedure Risk: Low Anesthetic Plan Anesthetic Plan: MAC: and Agree w/ Assess. and Plan Disposition: Standard PACU
--- NOTE | 2025-01-29 10:30 | MHC.SHP ---
Pre-Procedural Eval Section A - 24 Hr Update-Section A only Date of Service: 01/29/25 The patient is an INPATIENT: Yes Changes since office visit: No Cold of Flu in the past 2 weeks, No New Medical Problems, No Changes in Medication and No Patient answered all questions The patient has been examined within 24 hours of the surgical procedure. The History & Physical has been completed within 30 days and I have reviewed it.: Yes Section B - Complete if H&P > 30 days Chief Complaint: Anemia,colitis Allergies: Allergies Allergy/AdvReac Type Severity Reaction Status Date / Time No Known Allergies Allergy Verified 01/25/25 07:43 Plan I have reviewed the history and physical and performed a pertinent physical examination on my patient. No changes have occurred unless specified. Time Spent With Patient Time: Total time managing care of this patient today ____ minutes.
--- NOTE | 2025-01-29 11:17 | PM.EVENT ---
Event Note Date of Service: 01/29/25 Event Note: GI EGD/colon egd showed a small gastric polyp, snared, no bleeding Colon no colitis small polyp at 20 cm, bx'd random bx's taken Rec: advance diet d/c later today f/u bx results Time Spent With Patient Time: Total time managing care of this patient today ____ minutes.
[2025-01-29 11:19] VITALS: BP 105/48; PULSE 69; RESP 12; TEMP 36.4; O2SAT 96
--- NOTE | 2025-01-29 11:36 | OP_ITS ---
DATE OF SERVICE: 01/29/2025 SURGEON: Delvin Dinero MD INDICATIONS: Iron deficiency anemia and abnormal CT scan of the colon. PREOPERATIVE DIAGNOSIS: POSTOPERATIVE DIAGNOSIS: PROCEDURE PERFORMED: Upper endoscopy with biopsy and snare polypectomy, colonoscopy to the terminal ileum with biopsy. ESTIMATED BLOOD LOSS: COMPLICATIONS: ANESTHESIA: Monitored anesthesia care. ASSISTANTS: SPECIMENS: DESCRIPTION OF PROCEDURE: A history and physical was performed. The risks and benefits of the procedure were explained to the patient, and informed consent was obtained. The patient was placed in the left lateral decubitus position. The Olympus video gastroscope was introduced into the esophagus, stomach, and duodenum. Examination was performed. The scope was removed. She was repositioned for colonoscopy. A digital rectal exam was performed and was found to be normal. The Olympus pediatric video colonoscope was introduced into the rectum and advanced to the cecum. The cecum was identified by transillumination, palpation, and identification of ileocecal valve. Examination was performed. The scope was removed. She tolerated both procedures well and was returned to the recovery area in stable condition. FINDINGS: Upper endoscopy: 1. Esophagus: The esophagus was normal. There was no esophagitis. 2. Stomach: The stomach showed no evidence of masses or ulcers. There was a 7 mm polyp on the posterior wall of the antrum, which was not bleeding. This was removed with a cold snare and recovered via suction. Antral biopsies were obtained to evaluate for H pylori. 3. Duodenum: The bulb and 2nd portion were normal. Duodenal biopsies were obtained. Colonoscopy: The terminal ileum was examined and appeared normal. This was biopsied. The visualized colonic mucosa was normal without evidence of colitis. Biopsies were obtained from the right colon, sigmoid, and rectum. At 20 cm was a less than 5 mm sessile polyp, which was removed with the biopsy forceps. No other polyps were seen. Small internal hemorrhoids were noted on retroflexed examination. IMPRESSION: 1. Gastric polyp. 2. Colon polyps. RECOMMENDATION: 1. Follow up the biopsy results. 2. Advance diet. 3. The patient may be discharged later today. 4. Follow up in the office for pathology results and iron deficiency anemia. MD VIRAJ Cano/SHANNA / [phone]
[2025-01-29 11:37] VITALS: BP 125/69; PULSE 71; RESP 18; TEMP 36.4; O2SAT 96
--- NOTE | 2025-01-29 12:04 | PM.DS ---
DS: Providers Provider Date of Service: 01/29/25 Date of admission: 01/25/25 14:14 Date of discharge: 01/29/25 Primary care physician: [facility] Consults: 01/25/25 16:48 Consult to Gastroenterology Routine Consulting Provider: [facility] Boris Bell Reason for consultation: anemia, colitis DS: Diagnosis Discharge Diagnosis (1) Diarrhea: Status: Acute (2) Iron deficiency anemia: Status: Acute (3) Intestinal polyps: Status: Acute (4) Gastric polyp: Status: Acute DS: Summary Hospital Course Hospital Course: From the history and physical by the admitting hospitalist, Tami Quirino, 01/25/25: 'This is a 39-year-old female with history of pernicious anemia who presents to the emergency department with diarrhea. Patient states she has had 1 month history of crampy abdominal pain followed by diarrhea. She has an average of approximately 3-5 episodes per day. The diarrhea is non-bloody, but she does notice some blood on the toilet paper after she goes to the bathroom. She has no associated fever or chills. She denies any personal history of inflammatory bowel disease. She does have a history of pernicious anemia but no longer takes B12 injections. She does have history of uterine fibroid and abnormal uterine bleeding. She has never required blood transfusion in the past. In the emergency department she was afebrile, lab work revealed no leukocytosis but she was noted to be anemic. Her H/H was 6.4/23.4. Last available lab work for comparison was in 2020 and at that time her H/H was normal. She had CT scan of the abdomen and pelvis which showed left-sided colitis with rectal involvement. She received IV antibiotics, and one unit of blood and will be admitted for further work up related to anemia and colitis. 39yo F presenting with 1mo diarrhea and painless rectal bleeding found to have possible L-sided colitis with rectal involvement by CT, though could have been artifactual due to underdistension. She was admitted to the medical-surgical unit. She was transfused 3 units of packed red blood cells with Hb rising to 9.8. FOBT was actually negative. GI PCR panel negative; C. difficile testing indicating colonization rather than infection; however, given possibility of colitis, she was initially treated with PO vancomycin. Dr Dinero from Gastroenterology was consulted and performed EGD and colonoscopy 01/29/25, which showed: Upper endoscopy: 1. Esophagus: The esophagus was normal. There was no esophagitis. 2. Stomach: The stomach showed no evidence of masses or ulcers. There was a 7 mm polyp on the posterior wall of the antrum, which was not bleeding. This was removed with a cold snare and recovered via suction. Antral biopsies were obtained to evaluate for H pylori. 3. Duodenum: The bulb and 2nd portion were normal. Duodenal biopsies were obtained. Colonoscopy: The terminal ileum was examined and appeared normal. This was biopsied. The visualized colonic mucosa was normal without evidence of colitis. Biopsies were obtained from the right colon, sigmoid, and rectum. At 20 cm was a less than 5 mm sessile polyp, which was removed with the biopsy forceps. No other polyps were seen. Small internal hemorrhoids were noted on retroflexed examination. Given no active colitis, vancomycin was discontinued. She was discharged home on iron with instructions to follow up with Dr Dinero in 2 weeks and repeat a CBC in 2 weeks. Time Attestation Discharge Coordination Time (in mins): 35 Quality: Safe Use of Opioids Does Pt have an Active Cancer Diagnosis on the Problem List?: No Quality: Stroke Does the patient have a stroke diagnosis?: No Physical Exam Vital Signs: Vital Signs: Last Vital Signs Temp 97.6 F 01/29/25 11:37 Pulse 71 01/29/25 11:37 Resp 18 01/29/25 11:37 BP 125/69 01/29/25 11:37 Pulse Ox 96 01/29/25 11:37 O2 Del Method Room Air 01/29/25 11:37 BMI result Body Mass Index 43.3 Gen: in no acute distress HEENT: sclera anicteric, moist mucus membranes Neck: supple Lungs: clear to auscultation bilaterally Heart: regular rate and rhythm, no murmurs Abd: soft, non-tender, non-distended, obese Ext: no edema Skin: warm/well-perfused Neuro: alert and oriented x3, no focal findings Psych: appropriate affect DS: Data Data Completed and Pending Completed studies during hospitalization [Text1]: Laboratory Results WBC 7.6 X10*3/uL (4.8-10.8) 01/29/25 06:09 RBC 5.07 X10*6/uL (4.20-5.50) 01/29/25 06:09 Hgb 9.8 g/dl (12.0-16.0) L 01/29/25 06:09 Hct 33.6 % (37.0-47.0) L 01/29/25 06:09 MCV 66.3 fL (80.0-98.0) L 01/29/25 06:09 MCH 19.3 pg (27.0-33.0) L 01/29/25 06:09 MCHC 29.2 g/dl (31.0-35.0) L 01/29/25 06:09 RDW 28.1 % (11.0-16.0) H 01/29/25 06:09 Plt Count 321 X10*3/uL (160-400) 01/29/25 06:09 MPV 10.0 fL (9.4-12.3) 01/29/25 06:09 Immature Gran % (Auto) 0.4 % (0.0-0.4) 01/29/25 06:09 Neut % (Auto) 44.2 % (45-73) L 01/29/25 06:09 Lymph % (Auto) 37.4 % (20-40) 01/29/25 06:09 [place] % (Auto) 8.3 % (2-11) 01/29/25 06:09 Eos % (Auto) 8.5 % (0-4) H 01/29/25 06:09 Baso % (Auto) 1.2 % (0-2) 01/29/25 06:09 Lymph # (Auto) 2.8 X10*3/uL (1.2-4.9) 01/29/25 06:09 [place] # (Auto) 0.6 X10*3/uL (0.1-1.2) 01/29/25 06:09 Eos # (Auto) 0.6 X10*3/uL (0.0-0.4) H 01/29/25 06:09 Baso # (Auto) 0.1 X10*3/uL (0.0-0.2) 01/29/25 06:09 Abs Immat Gran (auto) 0.03 X10*3/uL (0.00-0.03) 01/29/25 06:09 Absolute Neuts (auto) 3.4 x10*3/uL (2.0-8.3) 01/29/25 06:09 Absolute Nucleated RBC 0.000 X10*3/uL (0.0-0.012) 01/29/25 06:09 Nucleated RBC % (auto) 0.0 /100WBC (0.0-0.2) 01/29/25 06:09 Smear Path Review SEE NOTE 01/25/25 08:15 Hold Purple Top SEE NOTE 01/25/25 18:26 Sodium 141 mmol/L (135-145) 01/29/25 06:09 Potassium 4.1 mmol/L (3.3-5.1) 01/29/25 06:09 Chloride 109 mmol/L (96-108) H 01/29/25 06:09 Carbon Dioxide 24 mmol/L (22-29) 01/29/25 06:09 Anion Gap 12 (12-20) 01/29/25 06:09 BUN 6 mg/dL (9-16) L 01/29/25 06:09 Creatinine 0.69 mg/dL (0.5-1.4) 01/29/25 06:09 Estim Creat Clear Calc 154.8 01/29/25 06:09 Estimated GFR > 60 01/29/25 06:09 Random Glucose 119 mg/dL (60-115) H 01/27/25 06:17 Fasting Glucose 94 mg/dL (60-99) 01/29/25 06:09 Calcium 9.0 mg/dL (8.4-10.2) 01/29/25 06:09 Magnesium 1.9 mg/dL (1.6-2.6) 01/25/25 08:15 Iron 11 mcg/dL (30-160) L 01/25/25 08:15 TIBC 426 mcg/dL (228-428) 01/25/25 08:15 % Saturation 3 % (15-50) L 01/25/25 08:15 Unsat Iron Binding 415 ug/dL 01/25/25 08:15 Ferritin 2 ng/mL (10-122) L 01/25/25 08:15 Total Bilirubin 0.6 mg/dL (0.0-1.0) 01/25/25 08:15 AST 22 U/L (5-31) 01/25/25 08:15 ALT 22 U/L (0-31) 01/25/25 08:15 Alkaline Phosphatase 55 U/L (39-117) 01/25/25 08:15 C-Reactive Protein 0.24 mg/dL (< or = 0.50) 01/25/25 08:15 Total Protein 7.0 g/dL (6.5-8.0) 01/25/25 08:15 Albumin 4.3 g/dL (3.5-5.0) 01/25/25 08:15 Lipase 25 U/L (8-78) 01/25/25 08:15 Vitamin B12 397 pg/mL (200-900) 01/25/25 18:26 Folate 4.9 ng/mL (> or = 4.0) 01/25/25 18:26 Beta HCG, Quant < 2 mIU/mL 01/25/25 08:15 Urine Color Yellow 01/25/25 10:29 Urine Appearance Clear 01/25/25 10:29 Urine pH 6.5 (5.0-9.0) 01/25/25 10:29 Ur Specific [place] 1.020 (1.005-1.025) 01/25/25 10:29 Urine Protein Negative mg/dL (Neg-Trace) 01/25/25 10:29 Urine Glucose (UA) Negative mg/dL (Negative) 01/25/25 10:29 Urine Ketones Negative mg/dL (Negative) 01/25/25 10:29 Urine Blood Negative (Negative) 01/25/25 10:29 Urine Nitrite Negative (Negative) 01/25/25 10:29 Ur Leukocyte Esterase Negative (Negative) 01/25/25 10:29 Stool Occult Blood NEGATIVE (NEGATIVE) 01/26/25 19:32 Stl C. cayetanensis PCR Not Detected (Not Detect.) 01/26/25 19:32 Stool Rotavirus A PCR Not Detected (Not Detect.) 01/26/25 19:32 Stl Adenov F 40/41 PCR Not Detected (Not Detect.) 01/26/25 19:32 Stool Astrovirus (PCR) Not Detected (Not Detect.) 01/26/25 19:32 Stool Campylobacter PCR Not Detected (Not Detect.) 01/26/25 19:32 Stool Cryptosporidium PCR Not Detected (Not Detect.) 01/26/25 19:32 Stl Sh Tox Pr E STEC PCR Not Detected (Not Detect.) 01/26/25 19:32 Stool E coli O157 PCR Not applicable (Not Detect.) 01/26/25 19:32 Stl Enterotoxigenic E PCR Not Detected (Not Detect.) 01/26/25 19:32 Stool EPEC (PCR) Not Detected (Not Detect.) 01/26/25 19:32 Stool EAEC (PCR) Not Detected (Not Detect.) 01/26/25 19:32 Stl E. histolytica PCR Not Detected (Not Detect.) 01/26/25 19:32 Stool Giardia Lamblia PCR Not Detected (Not Detect.) 01/26/25 19:32 Stl P. shigelloides PCR Not Detected (Not Detect.) 01/26/25 19:32 Stool Salmonella PCR Not Detected (Not Detect.) 01/26/25 19:32 Stool Sapovirus (PCR) Not Detected (Not Detect.) 01/26/25 19:32 Stl Shigella/EIEC PCR Not Detected (Not Detect.) 01/26/25 19:32 St Y.enterocolitica PCR Not Detected (Not Detect.) 01/26/25 19:32 Stool Vibrio (PCR) Not Detected (Not Detect.) 01/26/25 19:32 Stl Vibrio cholerae PCR Not Detected (Not Detect.) 01/26/25 19:32 Stl Norovirus GI/GII PCR Not Detected (Not Detect.) 01/26/25 19:32 C. difficile Tox B Gene POSITIVE (Negative) A* 01/26/25 19:32 C. difficile Toxin A&B Negative (Negative) 01/26/25 19:32 C. difficile Interpret SEE NOTE 01/26/25 19:32 Blood Type A Positive 01/25/25 08:42 Antibody Screen NEGATIVE 01/25/25 08:42 Crossmatch See Detail 01/25/25 08:42 Impressions Abdomen/Pelvis CT 01/25/25 09:43 IMPRESSION: 1. Suspect left-sided colitis with rectal involvement although there is underdistention of these regions complicating interpretation. Correlate for signs and symptoms of colitis. 2. Enlargement of the uterus, likely on the basis of the known underlying large fibroid. There are polycystic ovaries bilaterally. Electronically signed by: Angus Eisenberg MD 01/25/2025 10:23 AM EDT RP Pending studies at discharge: Pending at discharge 01/29/25 10:56 Surgical [PTH] Routine Discharge Plan Discharge Anticipated Discharge Date/Time: 01/29/25 12:01 Patient Disposition: Home, Self-Care Discharge Diagnosis: iron deficiency anemia gastric and colon polyps Referrals: Delvin Dinero MD [Physician, Gastroenterology] - 2 Weeks Center,[facility] [Primary Care Provider, Primary Care] - 1 Week Discharge Medications: New ferrous sulfate 325 mg (65 mg iron) tablet 325 mg PO DAILY Qty: 30 0RF Discharge Orders: Discharge Order (Routine); Ordered 01/29/25 Ordered By: Randy Smyth Diet: Advance to usual diet Activity on Discharge: As tolerated Stand Alone Forms: Patient Portal Discharge page, Work/School Release Print Language: Prydeinig Other Ambulatory Orders: Complete Blood Count Auto Diff (Routine) Timeframe: 2 Weeks Facility: [facility] - Location: Laboratory Ordered By: Randy Smyth Care Plan Goals: treat anemia Health Concerns: iron deficiency anemia gastric and colon polyps Plan of Treatment: ferrous sulfate 325 mg once daily, iron-rich foods, repeat CBC in 2 weeks follow up with GI Dr Dinero at [facility] in 2 weeks Please follow up with your primary care doctor within 1 week. Return to the hospital if you experience recurrent or worsening symptoms. Assessment: See Discharge Summary.
--- NOTE | 2025-01-29 13:21 | MHC.CM.PN ---
Patient is discharged to home self care today. Patient marvin self transport home.
[2025-01-29 15:01] VITALS: BP 119/72; PULSE 89; RESP 18; TEMP 36.8; O2SAT 98
--- NOTE | 2025-01-29 16:26 | P.CDIM_ITS ---
PROVIDER RESPONSE TEXT: To clarify, the appropriate diagnosis supported by the clinical indicators: Other (explain): Morbid Obesity QUERY TEXT: PHYSICIAN'S DOCUMENTATION REQUEST Date of Query: 01/29/2025 09:35 AM EDT Patient Name: LENNY SHARP Admit Date: 01/25/2025 Dear Randy Smyth MD, A review of the medical record indicates additional documentation may be needed. Please review below and update the documentation accordingly. Clinical Indicators: Height: ( ) 5'7 Weight: ( ) 127.2 kg BMI: ( ) 43.3 Other Clinical Notes Supporting Significance of the BMI: on therapeutic diet If possible, please provide an associated diagnosis related to the abnormal BMI, such as: Overweight Obesity Due to excess calories Obesity Drug induced Obesity Due to other cause Specify the other cause Severe or Morbid Obesity With alveolar hypoventilation Severe or Morbid Obesity Without alveolar hypoventilation BMI is not significant Other (explain) Clinically unable to determine (explain) Thank you, Suzie Carvajal RN Use of terms such as suspected, likely, concern for, or probable (associated with a specific diagnosis that is being evaluated, monitored, or treated as if it exists) are acceptable and can be coded in the inpatient setting, when documented at the time of discharge. Please use your independent medical judgment in providing your response. THIS QUERY IS PART OF THE PERMANENT MEDICAL RECORD
[2025-02-06 19:33] LABS: Calprotectin, Fecal 412 mcg/g
== END 2025-01-29 15:45 | disposition home or self-care (01) | DRG 663 ==
LOC: HO.ED 14:00 → HO.EDOVER 14:19 → HO.S3 16:27
PROVIDERS: Internal Medicine; Internal Medicine Gastroenterology; Physician Assistant; Admitting Provider Physician Assistant Medical; Emergency Provider Emergency Medicine; PCP Dentist General Practice; Visit Provider Family Medicine
PROC: 0DB98ZX Excision of Duodenum, Via Natural or Artificial Opening Endoscopic, Diagnostic (ICD-10-PCS; principal; 2025-01-29 12:50)
DX: D62 Acute posthemorrhagic anemia (principal); E66.01 Morbid (severe) obesity due to excess calories; F17.210 Nicotine dependence, cigarettes, uncomplicated; Z71.6 Tobacco abuse counseling; K63.5 Polyp of colon; K31.7 Polyp of stomach and duodenum; Z68.41 Body mass index [BMI] 40.0-44.9, adult; Z71.3 Dietary counseling and surveillance; Z22.1 Carrier of other intestinal infectious diseases
CPT/HCPCS: 36415; 74177; 80048; 80053; 81003; 82272; 82607; 82728; 82746; 83540; 83690; 83735; 83993; 84702; 85025; 85027; 86140; 86850; 86900; 86901; 86923; 87324; 87493; 87507; 88305; 88342; 99285; J0696; J1836; J1956; J2003; J2704; J3010; J7120; P9016; Q9967

== ENCOUNTER → 2025-01-25 08:44 | Outpatient (BNV) | payer MEDICAID, SELFPAY | PROVIDERS: Emergency Provider Emergency Medicine; PCP Dentist General Practice; Visit Provider Radiology Diagnostic Radiology | DX: K52.9 Noninfective gastroenteritis and colitis, unspecified (principal) | CPT/HCPCS: 74177 ==

== ENCOUNTER → 2025-01-25 14:14 | Outpatient (BNV) | payer MEDICAID, SELFPAY | PROVIDERS: Admitting Provider Physician Assistant Medical; Emergency Provider Emergency Medicine; PCP Dentist General Practice; Visit Provider Physician Assistant Medical | DX: D50.9 Iron deficiency anemia, unspecified (principal) | CPT/HCPCS: 99223; 99232; 99239 ==